=== PATIENT | female | born 1935 | race Caucasian/White ===

== ENCOUNTER 2016-05-31 13:12 | Emergency (ER) | payer MEDICARE, OTHER ==
[~2016-05-31] VITALS: Ht 167.6 cm; Wt 99.8 kg
[~2016-05-31 13:12] MED LIST: ALLO100T PO; D50KC PO; DONE5TAB30 PO; FLUO20CA25 PO; FLUT16SP22 NSEACH; FURO20TA4 PO; HYDR-3812 PO; INSU100I14 SQ; INSU100I29 SQ; LEVO125T6 PO; LISI30TA5 PO; LORA10TA7 PO; OMEP20CA12 PO; PRAV40TA2 PO
[2016-05-31 14:09] LABS: BASOPHILS % (AUTO) 0 % (0-10); EOSINOPHILS # (AUTO) 0.2 10^3/uL (0.0-0.3); EOSINOPHILS % (AUTO) 2 % (0-10); LYMPHOCYTES # (AUTO) 1.6 X 10^3 (1.0-4.0); LYMPHOCYTES % (AUTO) 21 % (12-44); MEAN CORPUSCULAR HEMOGLOBIN 31 PG (25-34); MEAN CORPUSCULAR HGB CONC 33 G/DL (32-36); MEAN CORPUSCULAR VOLUME 95 FL (80-99); MEAN PLATELET VOLUME 10.3 FL (7.4-10.4); MONOCYTES # (AUTO) 0.5 X 10^3 (0.0-1.0); MONOCYTES % (AUTO) 6 % (0-12); NEUTROPHILS # (AUTO) 5.6 X 10^3 (1.8-7.8); NEUTROPHILS % (AUTO) 71 % (42-75); PLATELET COUNT 199 10^3/uL (130-400); RED CELL DISTRIBUTION WIDTH 13.9 % (10.0-14.5)
[2016-05-31 14:20] LABS: ALBUMIN 3.6 G/DL (3.2-4.5); BILIRUBIN,TOTAL 0.2 MG/DL (0.1-1.0); CALCIUM 8.7 MG/DL (8.5-10.1); CREATININE SERUM 1.43 MG/DL (0.60-1.30); POTASSIUM 4.6 MMOL/L (3.6-5.0); TOTAL PROTEIN 6.9 G/DL (6.4-8.2)
[2016-05-31 14:23] LABS: BILIRUBIN,URINE NEGATIVE (NEGATIVE); KETONES,URINE NEGATIVE (NEGATIVE); LEUKOCYTE ESTERASE ,URINE NEGATIVE (NEGATIVE); NITRITE,URINE NEGATIVE (NEGATIVE); PH,URINE 5 (5-9); PROTEIN,URINE 3+ (NEGATIVE); UROBILINOGEN,URINE NORMAL (NORMAL)
--- NOTE | 2016-05-31 14:47 | Diagnostic Imaging Report ---
EXAM: Portable erect AP chest at 2:17 p.m. INDICATION: Fell. Chest pain. FINDINGS: The mild cardiomegaly and the left-sided pacemaker seen on the prior exam of 12/11/15 are again evident and no different. The lungs remain clear. There still no sign of failure, pneumonia or of a pleural effusion to suggest an acute abnormality. The mediastinum is not widened. The osseous structures are intact. IMPRESSION: There is mild cardiomegaly, but there is no evidence for an acute cardiopulmonary abnormality. Dictated by: Dictated on workstation # [id number]
--- NOTE | 2016-05-31 15:49 | ED General ---
General Chief Complaint: General Problems/Pain Stated Complaint: FALL, SHAKEY Nursing Triage Note: PT CO OF WEAKNESS, PT STATES FELL YESTERDAY, DENIES LOC,DENIES HITTING HEAD. PT HAS SKIN TEAR ON L ELBOW AND L 1ST KNUCKLE. PT IS VERY WEAK. Nursing Sepsis Screen: No Definite Risk Source of Information: Patient, Family History of Present Illness Time Seen by Provider: 15:46 Initial Comments This 80-year-old white female presents with a history of generalized weakness for the last 48 hours. The patient fell last night sustaining an injury to her left elbow and hand due to her weakness. There was no loss of consciousness. There's been no associated chest pain, fever or chills, shortness of breath or productive cough, associated nausea vomiting diarrhea or dysuria. Patient's past medical history significant in that she has a pacemaker for pericardia and stage III renal failure. Allergies and Home Medications Allergies Coded Allergies: No Known Drug Allergies (Unverified , 01/05/14) Home Medications Allopurinol 100 Mg Tablet #180 2 TAB PO DAILY (Reported) Donepezil HCl 5 Mg Tablet #30 1 TAB PO DAILY (Reported) Ergocalciferol (Vitamin D2) 50,000 Unit Capsule #4 50,000 UNITS PO WEEK ( Reported) Fluoxetine HCl 20 Mg Capsule #90 20 MG PO DAILY (Reported) Fluticasone Propionate 16 Gm [place].susp #16 50 MCG DAILY (Reported) Furosemide 20 Mg Tablet #90 1 TAB PO DAILY (Reported) Hydrocodone/Acetaminophen 1 Each Tablet #112 1 TAB PO Q6H (Reported) Insulin Aspart 300 Units/3 Ml Solution #15 10 UNITS SQ TIDWM (Reported) Insulin Detemir 100 Unit/1 Ml Insuln.pen #15 10 UNITS SQ HS (Reported) Levothyroxine Sodium 125 Mcg Tablet #30 1 TAB PO DAILY (Reported) Loratadine 10 Mg Tablet 10 MG PO DAILY (Reported) Omeprazole 20 Mg Capsule.dr #180 1 TAB PO DAILY (Reported) Pravastatin Sodium 40 Mg Tablet #30 1 TAB PO DAILY (Reported) Constitutional: No chills, No fever, weakness EENTM: No hearing loss, No throat pain, No vision loss Respiratory: No cough Cardiovascular: No chest pain Gastrointestinal: No abdominal pain, No diarrhea, No nausea, No vomiting Genitourinary: No dysuria, No frequency Musculoskeletal: No back pain Skin: No rash Psychiatric/Neurological: No Symptoms Reported Hematologic/Lymphatic: No Symptoms Reported Immunological/Allergic: no symptoms reported Past Aaukqqq-Uyteuk-Zglkaz Hx Patient Social History Alcohol Use: Denies Use Recreational Drug Use: No Smoking Status: Former Smoker Type Used: Cigarettes Recent Foreign Travel: No Contact w/Someone Who Travel: No Recent Infectious Disease Expo: No Recent Hopitalizations: No Immunizations Up To Date Date of Influenza Vaccine: Apr 03, 2016 Seasonal Allergies Seasonal Allergies: Yes Surgeries HX Surgeries: Yes (HERNIA REPAIR, "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 CHF) Cardiac Disorders: Chronic Edema/Swelling, Coronary Artery Disease, Heart Attack, High Cholesterol, Hypertension Neurological Hx Neurological Disorders: No Reproductive System : No Genitourinary Hx Genitourinary Disorders: Yes (STAGE 4 RENAL FAILURE, PER PT) Genitourinary Disorders: Renal Failure Gastrointestinal Hx Gastrointestinal Disorders: Yes Gastrointestinal Disorders: Abdominal Hernia, Gastroesophageal Reflux, Irritable Bowel Musculoskeletal Hx Musculoskeletal Disorders: Yes Musculoskeletal Disorders: Arthritis Endocrine Hx Endocrine Disorders: Yes Endocrine Disorders: Diabetes, Insulin dep, Hypothyroidsim HEENT HX ENT Disorders: No Cancer Hx Cancer: Yes Cancer: Skin Psychosocial Hx Psychiatric Problems: No Integumentary HX Skin/Integumentary Disorder: No Blood Transfusions Hx Blood Disorders: No Reviewed Nursing Assessment Reviewed/Agree w Nursing PMH: Yes Family Medical History Family Medial History: Patient reports no known family medical history. Physical Exam Vital Signs Vital Sign - Last 12Hours 05/31/16 13:30 Temp 99.5 Pulse 72 Resp 18 B/P 169/89 Pulse Ox 96 Capillary Refill : Less Than 3 Seconds General Appearance: No Apparent Distress WD/WN Eyes: Bilateral Eye Normal Inspection HEENT: PERRL/EOMI Neck: Full Range of Motion Normal Inspection Respiratory: Chest Non Tender Lungs Clear Normal Breath Sounds Cardiovascular: Regular Rate, Rhythm No Murmur Gastrointestinal: Normal Bowel Sounds Non Tender Back: Normal Inspection Extremity: Normal Inspection Normal Range of Motion Neurologic/Psychiatric: Oriented x3 No Motor/Sensory Deficits Normal Mood/ Affect Skin: Normal Color Warm/Dry Progress/Results/Core Measures Results/Orders Lab Results Laboratory Tests Test 05/31/16 13:50 05/31/16 14:00 Range/Units Alanine Aminotransferase (ALT/SGPT) 15 0-55 U/L Albumin 3.6 3.2-4.5 G/DL Alkaline Phosphatase 124 40-136 U/L Anion Gap 10 5-14 MMOL/L Aspartate Amino Transf (AST/SGOT) 13 5-34 U/L BUN/Creatinine Ratio 38 Basophils # (Auto) 0.0 0.0-0.1 10^3/uL Basophils (%) (Auto) 0 0-10 % Blood Urea Nitrogen 55 H 7-18 MG/DL Calcium Level 8.7 8.5-10.1 MG/DL Carbon Dioxide Level 21 21-32 MMOL/L Chloride Level 110 H 98-107 MMOL/L Creatinine 1.43 H 0.60-1.30 MG/DL Eosinophils # (Auto) 0.2 0.0-0.3 10^3/uL Eosinophils (%) (Auto) 2 0-10 % Estimat Glomerular Filtration Rate 35 Glucose Level 101 70-105 MG/DL Hematocrit 37 35-52 % Hemoglobin 12.2 11.5-16.0 G/DL Lymphocytes # (Auto) 1.6 1.0-4.0 X 10^3 Lymphocytes (%) (Auto) 21 12-44 % Mean Corpuscular Hemoglobin 31 25-34 PG Mean Corpuscular Hemoglobin Concent 33 32-36 G/DL Mean Corpuscular Volume 95 80-99 FL Mean Platelet Volume 10.3 7.4-10.4 FL Monocytes # (Auto) 0.5 0.0-1.0 X 10^3 Monocytes (%) (Auto) 6 0-12 % Neutrophils # (Auto) 5.6 1.8-7.8 X 10^3 Neutrophils (%) (Auto) 71 42-75 % Platelet Count 199 130-400 10^3/uL Potassium Level 4.6 3.6-5.0 MMOL/L Red Blood Count 3.90 L 4.35-5.85 10^6/uL Red Cell Distribution Width 13.9 10.0-14.5 % Sodium Level 141 135-145 MMOL/L Total Bilirubin 0.2 0.1-1.0 MG/DL Total Protein 6.9 6.4-8.2 G/DL White Blood Count 8.0 4.3-11.0 10^3/uL Urine Amorphous Sediment FEW TETO URATES H /LPF Urine Bacteria NEGATIVE /HPF Urine Bilirubin NEGATIVE NEGATIVE Urine Casts NONE /LPF Urine Clarity CLEAR Urine Color YELLOW Urine Crystals PRESENT H /LPF Urine Culture Indicated NO Urine Glucose (UA) NEGATIVE NEGATIVE Urine Ketones NEGATIVE NEGATIVE Urine Leukocyte Esterase NEGATIVE NEGATIVE Urine Mucus NEGATIVE /LPF Urine Nitrite NEGATIVE NEGATIVE Urine Protein 3+ H NEGATIVE Urine RBC NONE /HPF Urine RBC (Auto) NEGATIVE NEGATIVE Urine Specific [place] 1.015 L 1.016-1.022 Urine Urobilinogen NORMAL NORMAL MG/DL Urine WBC NONE /HPF Urine pH 5 5-9 My Orders Orders-VINCE CARVALHO MD Cbc With Automated Diff (05/31/16 14:01) Comprehensive Metabolic Panel (05/31/16 14:01) Ua Culture If Indicated (05/31/16 14:01) Chest 1 View, Ap/Pa Only (05/31/16 14:10) Continuous Ekg Monitoring (05/31/16 15:49) Ekg Tracing (05/31/16 16:04) Vital Signs/I&O Vital Sign - Last 12Hours 05/31/16 13:30 Temp 99.5 Pulse 72 Resp 18 B/P 169/89 Pulse Ox 96 Blood Pressure Mean: 115 Progress Note : Time: 16:38 Progress Note The patient's evaluation emergency department demonstrated no acute pathology. The patient remained awake and alert during her evaluation. She was able to function with assistance to use the bathroom. The patient's CBC, CMP, UA, and EKG were without evidence of acute pathology. The patient's pacemaker appeared to be functioning on a less than optimal EKG tracing. I detected no changes from the patient's previous EKG. The patient wanted to return to home and follow up with her primary care physician on Friday. Departure Impression Impression: Primary Impression: Generalized weakness Additional Impression: Viral syndrome Disposition: HOME, SELF-CARE Condition: Improved Departure-Patient Inst. Decision time for Depature: 16:42 Referrals: [facility] ([facility]Family) Primary Care Physician Patient Instructions: Generalized Weakness (DC) Add. Discharge Instructions: Rest this weekend. Come back if you've any further problems. Follow closely with [facility] on Friday. All discharge instructions reviewed with patient and/or family. Voiced understanding. VINCE CARVALHO MD May 31, 2016 15:49
[2016-05-31 16:51] VITALS: BP 152/79
== END 2016-05-31 16:51 | disposition home or self-care (01) ==
LOC: EDUNIT# 13:12 → ER 13:15
DX: B34.9 Viral infection, unspecified (principal); E11.9 Type 2 diabetes mellitus without complications; I10 Essential (primary) hypertension; I25.10 Atherosclerotic heart disease of native coronary artery without angina pectoris; Z87.891 Personal history of nicotine dependence; Z79.4 Long term (current) use of insulin; Z79.899 Other long term (current) drug therapy; Z95.0 Presence of cardiac pacemaker
CPT/HCPCS: 36415; 71010; 80053; 81000; 85025; 93005

== ENCOUNTER 2016-06-07 08:43 | Emergency (ER) | payer MEDICARE, OTHER ==
[~2016-06-07] VITALS: Ht 170.2 cm; Wt 100.7 kg
--- OUTSIDE RECORDS SUMMARY | 2016-06-07 08:49 | XMS REPORT ---
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 Name Role Phone RADHA JANG Unavailable PROBLEMS Type Condition ICD9-CM Code [id number] Code Onset Dates Condition Status SNOMED Code Problem Hyperlipidemia, unspecified E78.5 Active 83313713 Problem Muscle weakness-general M62.81 Active 33668626 Problem Essential (primary) hypertension I10 Active 73726250 Problem Gastritis K29.70 Active 8422225 Problem Pacemaker Z95.0 Active 317234266 Problem Depression F32.9 Active 99564568 Assessment Yeast infection of the skin B37.2 Nov, Active 74885044 Problem Venous insufficiency of both lower extremities I87.2 Active 765565919 Problem Atherosclerotic heart disease of [place] coronary artery without angina pectoris I25.10 Active 254860576 Problem Candidiasis, intertriginous B37.2 Active 45273044 Problem Peripheral vascular disease I73.9 Active 829420518 Problem Dysthymia F34.1 Active 64068192 Problem Hyperparathyroidism due to renal insufficiency N25.81 Active 34389531 Problem Low back pain M54.5 Active 915968439 Problem Sleep related hypoxia G47.34 Active 51057515 Problem Type 2 diabetes mellitus with other diabetic ophthalmic complication E11.39 Active 01971958 Problem Type 2 diabetes mellitus with diabetic polyneuropathy E11.42 Active 441745410 Problem Anemia due to chronic kidney disease N18.9 Active 247600744 Problem Type 2 diabetes mellitus with diabetic chronic kidney disease E11.22 Active 75805039 Problem Hypothyroidism, unspecified E03.9 Active 24758613 Problem Type 2 diabetes mellitus with unspecified complications E11.8 Active 53797505 ALLERGIES Unknown Allergies SOCIAL HISTORY No smoking Hx information available PLAN OF CARE VITAL SIGNS MEDICATIONS Medication Instructions Dosage Frequency Start Date End Date Duration Status Nystatin 050756 UNIT/GM Externally 3 times a day 1 application to affected area as needed 8h Nov, Active RESULTS No Results PROCEDURES No Known procedures IMMUNIZATIONS No Known Immunizations
[2016-06-07 09:39] LABS: BASOPHILS % (AUTO) 0 % (0-10); EOSINOPHILS # (AUTO) 0.2 10^3/uL (0.0-0.3); EOSINOPHILS % (AUTO) 1 % (0-10); LYMPHOCYTES # (AUTO) 0.7 X 10^3 (1.0-4.0); LYMPHOCYTES % (AUTO) 6 % (12-44); MEAN CORPUSCULAR HEMOGLOBIN 31 PG (25-34); MEAN CORPUSCULAR HGB CONC 33 G/DL (32-36); MEAN CORPUSCULAR VOLUME 96 FL (80-99); MEAN PLATELET VOLUME 10.4 FL (7.4-10.4); MONOCYTES # (AUTO) 0.8 X 10^3 (0.0-1.0); MONOCYTES % (AUTO) 7 % (0-12); NEUTROPHILS # (AUTO) 10.1 X 10^3 (1.8-7.8); NEUTROPHILS % (AUTO) 86 % (42-75); PLATELET COUNT 192 10^3/uL (130-400); RED BLOOD COUNT 3.57 10^6/uL (4.35-5.85); RED CELL DISTRIBUTION WIDTH 14.3 % (10.0-14.5); WHITE BLOOD COUNT 11.8 10^3/uL (4.3-11.0)
--- NOTE | 2016-06-07 09:51 | ED Cough/URI ---
General Chief Complaint: Cough/Cold/Flu Symptoms Stated Complaint: COUGH/WHEEZING SOA Nursing Triage Note: c/o cough/congestion/mild SOA. Onset yesterday. Source: patient Exam Limitations: no limitations History of Present Illness Time seen by provider: 09:48 Initial Comments The patient is an 80-year-old white female who was brought by her granddaughter with a complaint of cough and shortness of breath. When asked if she has any lung diseases like COPD she attempted to minimize this. Her granddaughter however states that she has been given this diagnosis. She also had been given prescriptions for Advair but she has discontinued those. She was a smoker until 2-3 years ago. There are 2 great grandchildren in the home. She is not aware of fever. Timing/Duration: yesterday Severity/Quality: dry cough Prior Episodes/Possible Cause: occasional episodes Allergies and Home Medications Allergies Coded Allergies: No Known Drug Allergies (Unverified , 01/05/14) Home Medications Allopurinol 100 Mg Tablet #180 2 TAB PO DAILY (Reported) Donepezil HCl 5 Mg Tablet #30 1 TAB PO DAILY (Reported) Ergocalciferol (Vitamin D2) 50,000 Unit Capsule #4 50,000 UNITS PO WEEK ( Reported) Fluoxetine HCl 20 Mg Capsule #90 20 MG PO DAILY (Reported) Fluticasone Propionate 16 Gm [place].susp #16 50 MCG DAILY (Reported) Furosemide 20 Mg Tablet #90 1 TAB PO DAILY (Reported) Hydrocodone/Acetaminophen 1 Each Tablet #112 1 TAB PO Q6H (Reported) Insulin Aspart 300 Units/3 Ml Solution #15 10 UNITS SQ TIDWM (Reported) Insulin Detemir 100 Unit/1 Ml Insuln.pen #15 10 UNITS SQ HS (Reported) Levothyroxine Sodium 125 Mcg Tablet #30 1 TAB PO DAILY (Reported) Loratadine 10 Mg Tablet 10 MG PO DAILY (Reported) Omeprazole 20 Mg Capsule.dr #180 1 TAB PO DAILY (Reported) Pravastatin Sodium 40 Mg Tablet #30 1 TAB PO DAILY (Reported) Constitutional: see HPI EENTM: no symptoms reported Respiratory: see HPI cough short of breath wheezing Cardiovascular: no symptoms reported Gastrointestinal: no symptoms reported Genitourinary: no symptoms reported Musculoskeletal: no symptoms reported Skin: no symptoms reported Psychiatric/Neurological: No Symptoms Reported Hematologic/Lymphatic: No Symptoms Reported Immunological/Allergic: no symptoms reported Past Vibosfu-Vphrvc-Uoyzsu Hx Patient Social History Alcohol Use: Denies Use Recreational Drug Use: No Smoking Status: Former Smoker Type Used: Cigarettes Recent Foreign Travel: No Contact w/Someone Who Travel: No Recent Infectious Disease Expo: No Recent Hopitalizations: No Immunizations Up To Date Date of Influenza Vaccine: Apr 03, 2016 Seasonal Allergies Seasonal Allergies: Yes Surgeries HX Surgeries: Yes (HERNIA REPAIR, "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 CHF) Cardiac Disorders: Chronic Edema/Swelling, Coronary Artery Disease, Heart Attack, High Cholesterol, Hypertension Neurological Hx Neurological Disorders: No Genitourinary Hx Genitourinary Disorders: Yes (STAGE 4 RENAL FAILURE, PER PT) Genitourinary Disorders: Renal Failure Gastrointestinal Hx Gastrointestinal Disorders: Yes Gastrointestinal Disorders: Abdominal Hernia, Gastroesophageal Reflux, Irritable Bowel Musculoskeletal Hx Musculoskeletal Disorders: Yes Musculoskeletal Disorders: Arthritis Endocrine Hx Endocrine Disorders: Yes Endocrine Disorders: Diabetes, Insulin dep, Hypothyroidsim HEENT HX ENT Disorders: No Cancer Hx Cancer: Yes Cancer: Skin Psychosocial Hx Psychiatric Problems: No Integumentary HX Skin/Integumentary Disorder: No Blood Transfusions Hx Blood Disorders: No Family Medical History Family Medial History: Patient reports no known family medical history. Physical Exam Vital Signs Vital Sign - Last 12Hours 06/07/16 09:06 Temp 98.8 Pulse 84 Resp 28 B/P 183/80 O2 Delivery Room Air Capillary Refill : Less Than 3 Seconds General Appearance: mild distress Eyes: Bilateral Eye Normal Inspection Neck: full range of motion Respiratory: chest non-tender lungs clear no respiratory distress no accessory muscle use respiratory distress decreased breath sounds Cardiovascular: normal peripheral pulses regular rate, rhythm no edema no gallop no JVD no murmur Gastrointestinal: normal bowel sounds non tender soft no organomegaly no pulsatile mass Extremities: normal range of motion non-tender normal inspection no pedal edema no calf tenderness normal capillary refill pelvis stable Neurologic/Psychiatric: amphibian crewmember II-XII nml as tested no motor/sensory deficits alert normal mood/affect oriented x 3 Skin: normal color warm/dry cyanosis cool diaphoresis damp Lymphatic: no adenopathy axilla node tender (R) axilla node tender (L) inguinal node tender (R) inguinal node tender (L) Progress/Results/Core Measures Results/Orders Lab Results Laboratory Tests Test 06/07/16 09:24 06/07/16 10:15 Range/Units Alanine Aminotransferase (ALT/SGPT) 14 0-55 U/L Albumin 3.4 3.2-4.5 G/DL Alkaline Phosphatase 119 40-136 U/L Anion Gap 9 5-14 MMOL/L Aspartate Amino Transf (AST/SGOT) 11 5-34 U/L BUN/Creatinine Ratio 34 Band Neutrophils 0 % Basophils # (Auto) 0.0 0.0-0.1 10^3/uL Basophils % (Manual) 0 % Basophils (%) (Auto) 0 0-10 % Blood Morphology Comment NORMAL Blood Urea Nitrogen 53 H 7-18 MG/DL Calcium Level 8.4 L 8.5-10.1 MG/DL Carbon Dioxide Level 18 L 21-32 MMOL/L Chloride Level 113 H 98-107 MMOL/L Creatinine 1.55 H 0.60-1.30 MG/DL Eosinophils # (Auto) 0.2 0.0-0.3 10^3/uL Eosinophils % (Manual) 1 % Eosinophils (%) (Auto) 1 0-10 % Estimat Glomerular Filtration Rate 32 Glucose Level 244 H 70-105 MG/DL Hematocrit 34 L 35-52 % Hemoglobin 11.2 L 11.5-16.0 G/DL Lymphocytes # (Auto) 0.7 L 1.0-4.0 X 10^3 Lymphocytes % (Manual) 4 % Lymphocytes (%) (Auto) 6 L 12-44 % Mean Corpuscular Hemoglobin 31 25-34 PG Mean Corpuscular Hemoglobin Concent 33 32-36 G/DL Mean Corpuscular Volume 96 80-99 FL Mean Platelet Volume 10.4 7.4-10.4 FL Monocytes # (Auto) 0.8 0.0-1.0 X 10^3 Monocytes % (Manual) 6 % Monocytes (%) (Auto) 7 0-12 % Neutrophils # (Auto) 10.1 H 1.8-7.8 X 10^3 Neutrophils % (Manual) 89 % Neutrophils (%) (Auto) 86 H 42-75 % Platelet Count 192 130-400 10^3/uL Potassium Level 4.3 3.6-5.0 MMOL/L Red Blood Count 3.57 L 4.35-5.85 10^6/uL Red Cell Distribution Width 14.3 10.0-14.5 % Sodium Level 140 135-145 MMOL/L Total Bilirubin 0.4 0.1-1.0 MG/DL Total Protein 6.5 6.4-8.2 G/DL White Blood Count 11.8 H 4.3-11.0 10^3/uL Urine Amorphous Sediment LARGE TETO URATES H /LPF Urine Bacteria NEGATIVE /HPF Urine Bilirubin NEGATIVE NEGATIVE Urine Casts NONE /LPF Urine Clarity CLEAR Urine Color YELLOW Urine Crystals NONE /LPF Urine Culture Indicated NO Urine Glucose (UA) NEGATIVE NEGATIVE Urine Ketones NEGATIVE NEGATIVE Urine Leukocyte Esterase NEGATIVE NEGATIVE Urine Mucus NEGATIVE /LPF Urine Nitrite NEGATIVE NEGATIVE Urine Protein 3+ H NEGATIVE Urine RBC NONE /HPF Urine RBC (Auto) NEGATIVE NEGATIVE Urine Specific [place] 1.020 1.016-1.022 Urine Squamous Epithelial Cells 0-2 /HPF Urine Urobilinogen NORMAL NORMAL MG/DL Urine WBC NONE /HPF Urine pH 5 5-9 My Orders Orders-KWADWO LOPEZ MD Cbc With Automated Diff (06/07/16 08:51) Comprehensive Metabolic Panel (06/07/16 08:51) Ua Culture If Indicated (06/07/16 08:51) Influenza A And B Antigens (06/07/16 09:24) Chest 1 View, Ap/Pa Only (06/07/16 09:24) Manual Differential (06/07/16 09:24) Vital Signs/I&O Vital Sign - Last 12Hours 06/07/16 09:06 Temp 98.8 Pulse 84 Resp 28 B/P 183/80 O2 Delivery Room Air Blood Pressure Mean: 114 Departure Impression Impression: Primary Impression: Upper respiratory infection Additional Impression: exacerbation of COPD Disposition: HOME, SELF-CARE Condition: Improved Departure-Patient Inst. Decision time for Depature: 10:56 Referrals: [facility] (PCP/Family) Primary Care Physician Add. Discharge Instructions: All discharge instructions reviewed with patient and/or family. Voiced understandi Take antibiotics as directed Use inhaler 4 times daily Take Tessalon for cough suppression Scripts Benzonatate (Tessalon [place])100 Mg [id number] Mg PO TTWICE A DAY #20 CAP Prov:KWADWO LOPEZ MD 06/07/16 Cefdinir 300 Mg [id number] Mg PO BID #20 CAP Prov:KWADWO LOPEZ MD 06/07/16 Albuterol/Ipratropium (Combivent Respimat Inhal [place])4 Gm Aero2 Puff IH 4 TIMES A DAY #1 INH Prov:KWADWO LOPEZ MD 06/07/16 KWADWO LOPEZ MD Jun 07, 2016 09:51
[2016-06-07 09:57] LABS: ALBUMIN 3.4 G/DL (3.2-4.5); BILIRUBIN,TOTAL 0.4 MG/DL (0.1-1.0); CALCIUM 8.4 MG/DL (8.5-10.1); CREATININE SERUM 1.55 MG/DL (0.60-1.30); POTASSIUM 4.3 MMOL/L (3.6-5.0); TOTAL PROTEIN 6.5 G/DL (6.4-8.2)
[2016-06-07 10:09] LABS: BAND NEUTROPHILS 0 %; BASOPHILS % (MANUAL) 0 %; EOSINOPHILS % (MANUAL) 1 %; LYMPHOCYTES % (MANUAL) 4 %; NEUTROPHILS % (MANUAL) 89 %
[2016-06-07 10:26] LABS: BILIRUBIN,URINE NEGATIVE (NEGATIVE); KETONES,URINE NEGATIVE (NEGATIVE); LEUKOCYTE ESTERASE ,URINE NEGATIVE (NEGATIVE); NITRITE,URINE NEGATIVE (NEGATIVE); PH,URINE 5 (5-9); PROTEIN,URINE 3+ (NEGATIVE); UROBILINOGEN,URINE NORMAL (NORMAL)
[2016-06-07 10:33] LABS: SQUAMOUS EPITHELIAL CELL,UR 0-2 /HPF
[2016-06-07] MEDS ORDERED: CEFD300C3 PO (10:59)
[2016-06-07] MEDS ORDERED: IPRA4AER IH (10:59)
[2016-06-07] MEDS ORDERED: BENZ-13 PO (11:01)
[2016-06-07] MEDS: RT-ALBUTEROL/IPRATROPIUM 3 ML (DUONEB) VIAL INH ONE (11:14)
--- NOTE | 2016-06-07 11:29 | Diagnostic Imaging Report ---
INDICATION: Fell. 1002 hrs. Portable upright view of the chest is obtained. Comparison is made to study of 05/31/2016. There is mild cardiomegaly and pulmonary venous congestion. No pneumothorax or consolidation is identified. Left anterior chest wall dual-chamber cardiac pacemaker is in stable position. There is no pneumothorax or significant pleural fluid. IMPRESSION: Mild pulmonary venous congestion may be related to mild cardiac decompensation. There is no significant overt edema or other adverse change. Dictated by: Dictated on workstation # [id number]
[2016-06-07 11:35] VITALS: BP 172/76
== END 2016-06-07 11:49 | disposition home or self-care (01) ==
LOC: EDUNIT# 08:43 → ER 08:45
DX: J44.1 Chronic obstructive pulmonary disease with (acute) exacerbation (principal); J06.9 Acute upper respiratory infection, unspecified; I25.10 Atherosclerotic heart disease of native coronary artery without angina pectoris; I10 Essential (primary) hypertension; E11.9 Type 2 diabetes mellitus without complications; Z79.4 Long term (current) use of insulin; Z79.899 Other long term (current) drug therapy; Z87.891 Personal history of nicotine dependence
CPT/HCPCS: 36415; 71010; 80053; 81000; 85007; 85027; 87804; 94640; 94664; 99282

== ENCOUNTER 2016-06-09 14:46 | Inpatient (IN) | payer MEDICARE, OTHER ==
[~2016-06-09] VITALS: Ht 170.2 cm; Wt 109.4 kg
[~2016-06-09 14:46] MED LIST changes: +BENZ-13 PO; +CEFD300C3 PO; +IPRA4AER IH
[2016-06-09] MEDS ORDERED: RX-NITROGLYCERIN 0.4 MG TAB BTL 25'S SL PRN (15:00)
[2016-06-09] MEDS ORDERED: ASPIRIN 81 MG CHEW (CHILDREN'S ASA) PO ONE (15:00)
--- NOTE | 2016-06-09 15:01 | ED Chest Pain ---
General Stated Complaint: CP Source: patient (SOMEWHAT LIMITED HISTORIAN), EMS, old records History of Present Illness Time seen by provider: 14:47 Initial Comments PT ARRIVES VIA EMS FROM HOME C/O CHEST PAIN FOR SEVERAL DAYS, WORSE TODAY PAIN COMES AND GOES--RATES 5-6 NOW PAIN IS ACROSS UPPER CHEST AND IS WORSE ON THE RIGHT C/O LEFT ARM PAIN PT STATES SHE IS ALWAYS SHORT OF BREATH AND IS NOT ANY WORSE TODAY C/O GENERALIZED WEAKNESS AND HAS BEEN UNABLE TO STAND TODAY PT HAS CHRONIC SWELLING IN LEGS--RIGHT > LEFT--AND IS NO DIFFERENT TODAY EMS GAVE 323 MG ASPIRIN, NO NTG GIVEN PT HAS HAD COUGH/COLD SYMPTOMS FOR A FEW DAYS, WITH FEVER UP TO 100.2 SEEN HERE 06/07/16 FOR SHORTNESS OF BREATH, HAS COPD.--RX'S COMBIVENT INHALER, CEFDINIR, TESSALON PT ALSO SEEN HERE 05/31/16 FOR GENERALIZED WEAKNESS--WORK UP NEGATIVE, 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, 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 Allergies and Home Medications Allergies Coded Allergies: No Known Drug Allergies (Unverified , 01/05/14) Home Medications Albuterol/Ipratropium 4 Gm Aero #1 2 PUFF IH 4 TIMES A DAY Prescribed by: KWADWO LOPEZ on 06/07/16 1059 Allopurinol 100 Mg Tablet #180 2 TAB PO DAILY (Reported) Benzonatate 100 Mg Capsule #20 100 MG PO TTWICE A DAY Prescribed by: KWADWO LOPEZ on 06/07/16 1101 Cefdinir 300 Mg Capsule #20 300 MG PO BID Prescribed by: KWADWO LOPEZ on 06/07/16 1059 Donepezil HCl 5 Mg Tablet #30 1 TAB PO DAILY (Reported) Ergocalciferol (Vitamin D2) 50,000 Unit Capsule #4 50,000 UNITS PO WEEK ( Reported) Fluoxetine HCl 20 Mg Capsule #90 20 MG PO DAILY (Reported) Fluticasone Propionate 16 Gm [place].susp #16 50 MCG DAILY (Reported) Furosemide 20 Mg Tablet #90 1 TAB PO DAILY (Reported) Hydrocodone/Acetaminophen 1 Each Tablet #112 1 TAB PO Q6H (Reported) Insulin Aspart 300 Units/3 Ml Solution #15 10 UNITS SQ TIDWM (Reported) Insulin Detemir 100 Unit/1 Ml Insuln.pen #15 10 UNITS SQ HS (Reported) Levothyroxine Sodium 125 Mcg Tablet #30 1 TAB PO DAILY (Reported) Loratadine 10 Mg Tablet 10 MG PO DAILY (Reported) Omeprazole 20 Mg Capsule.dr #180 1 TAB PO DAILY (Reported) Pravastatin Sodium 40 Mg Tablet #30 1 TAB PO DAILY (Reported) Review of Systems Constitutional: see HPI fever malaise weakness EENTM: See HPI Nose Congestion Respiratory: See HPI CoughDenies Shortness of Air, Denies Wheezing Cardiovascular: See HPI Chest PainDenies Edema, Denies Lightheadedness, Denies Palpitations, Denies Syncope Gastrointestinal: No Symptoms Reported Genitourinary: No Symptoms Reported Musculoskeletal: see HPI (LEFT ARM PAIN ) Skin: no symptoms reported Psychiatric/Neurological: No Symptoms Reported Endocrine: No Symptoms Reported Hematologic/Lymphatic: No Symptoms Reported Past Drtikdl-Qrhwpk-Jkdraw Hx Patient Social History Alcohol Use: Denies Use Recreational Drug Use: No Smoking Status: Former Smoker (1 PPD, QUIT 2013) Type Used: Cigarettes Recent Hopitalizations: No Immunizations Up To Date Date of Influenza Vaccine: Apr 03, 2016 Seasonal Allergies Seasonal Allergies: Yes Surgeries HX Surgeries: Yes (HERNIA REPAIR, "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 CHF) Cardiac Disorders: Chronic Edema/Swelling, Coronary Artery Disease, Heart Attack, High Cholesterol, Hypertension Neurological Hx Neurological Disorders: Yes Neurological Disorders: Dementia Genitourinary Hx Genitourinary Disorders: Yes (STAGE 4 RENAL FAILURE, PER PT) Genitourinary Disorders: Renal Failure Gastrointestinal Hx Gastrointestinal Disorders: Yes Gastrointestinal Disorders: Abdominal Hernia, Gastroesophageal Reflux, Irritable Bowel Musculoskeletal Hx Musculoskeletal Disorders: Yes Musculoskeletal Disorders: Arthritis, Chronic Back Pain Endocrine Hx Endocrine Disorders: Yes Endocrine Disorders: Diabetes, Insulin dep, Hypothyroidsim HEENT HX ENT Disorders: No Cancer Hx Cancer: Yes Cancer: Skin Psychosocial Hx Psychiatric Problems: Yes Behavioral Health Disorders: Anxiety, Depression Integumentary HX Skin/Integumentary Disorder: No Blood Transfusions Hx Blood Disorders: No Family Medical History Family Medial History: Patient reports no known family medical history. Physical Exam Vital Signs Vital Sign - Last 12Hours 06/09/16 14:46 Temp 101.2 Pulse 67 Resp 18 B/P 133/64 Pulse Ox 94 O2 Delivery Nasal Cannula O2 Flow Rate 2 Capillary Refill : General Appearance: No Apparent Distress Obese Other (DOES NOT APPEAR TO BE IN ANY DISCOMFORT OR DISTRESS. 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 Norm as Tested Skin: Normal Color Warm/DryNo Rash Progress/Results/Core Measures Results/Orders Lab Results Laboratory Tests Test 06/09/16 15:03 06/09/16 15:17 06/09/16 16:22 Range/Units Activated Partial Thromboplast Time 29 24-35 SEC Alanine Aminotransferase (ALT/SGPT) 16 0-55 U/L Albumin 3.2 3.2-4.5 G/DL Alkaline Phosphatase 103 40-136 U/L Amylase Level 26 25-125 U/L Anion Gap 11 5-14 MMOL/L Aspartate Amino Transf (AST/SGOT) 12 5-34 U/L B-Type Natriuretic Peptide 999.8 H <100.0 PG/ML BUN/Creatinine Ratio 36 Basophils # (Auto) 0.0 0.0-0.1 10^3/uL Basophils (%) (Auto) 0 0-10 % Blood Urea Nitrogen 58 H 7-18 MG/DL Calcium Level 8.6 8.5-10.1 MG/DL Carbon Dioxide Level 19 L 21-32 MMOL/L Chloride Level 111 H 98-107 MMOL/L Creatine Kinase MB 1.2 <6.6 NG/ML Creatinine 1.60 H 0.60-1.30 MG/DL Eosinophils # (Auto) 0.1 0.0-0.3 10^3/uL Eosinophils (%) (Auto) 1 0-10 % Estimat Glomerular Filtration Rate 31 Glucose Level 207 H 70-105 MG/DL Hematocrit 32 L 35-52 % Hemoglobin 10.4 L 11.5-16.0 G/DL INR Comment 1.1 0.8-1.4 Lipase 11 8-78 U/L Lymphocytes # (Auto) 0.6 L 1.0-4.0 X 10^3 Lymphocytes (%) (Auto) 6 L 12-44 % Magnesium Level 1.6 L 1.8-2.4 MG/DL Mean Corpuscular Hemoglobin 31 25-34 PG Mean Corpuscular Hemoglobin Concent 33 32-36 G/DL Mean Corpuscular Volume 96 80-99 FL Mean Platelet Volume 10.5 H 7.4-10.4 FL Monocytes # (Auto) 0.6 0.0-1.0 X 10^3 Monocytes (%) (Auto) 6 0-12 % Neutrophils # (Auto) 9.0 H 1.8-7.8 X 10^3 Neutrophils (%) (Auto) 86 H 42-75 % Platelet Count 183 130-400 10^3/uL Potassium Level 4.0 3.6-5.0 MMOL/L Prothrombin Time 14.2 12.2-14.7 SEC Red Blood Count 3.32 L 4.35-5.85 10^6/uL Red Cell Distribution Width 14.2 10.0-14.5 % Sodium Level 141 135-145 MMOL/L Total Bilirubin 0.4 0.1-1.0 MG/DL Total Creatine Kinase 43 29-168 U/L Total Protein 6.5 6.4-8.2 G/DL Troponin I < 0.30 <0.30 NG/ML White Blood Count 10.4 4.3-11.0 10^3/uL Lactic Acid Level 1.34 0.50-2.00 MMOL/L Urine Amorphous Sediment LARGE TETO URATES H /LPF Urine Bacteria NEGATIVE /HPF Urine Bilirubin NEGATIVE NEGATIVE Urine Casts NONE /LPF Urine Clarity SLIGHTLY CLOUDY Urine Color YELLOW Urine Crystals NONE /LPF Urine Culture Indicated NO Urine Glucose (UA) NEGATIVE NEGATIVE Urine Ketones NEGATIVE NEGATIVE Urine Leukocyte Esterase NEGATIVE NEGATIVE Urine Mucus NEGATIVE /LPF Urine Nitrite NEGATIVE NEGATIVE Urine Protein 3+ H NEGATIVE Urine RBC NONE /HPF Urine RBC (Auto) NEGATIVE NEGATIVE Urine Specific [place] 1.015 L 1.016-1.022 Urine Squamous Epithelial Cells RARE /HPF Urine Urobilinogen NORMAL NORMAL MG/DL Urine WBC NONE /HPF Urine pH 5 5-9 Micro Results Microbiology 06/09/16 Influenza Types A,B Antigen (GALLO) - Final, Complete My Orders Orders-WONG CASTRO DO Amylase (06/09/16 14:58) Cbc With Automated Diff (06/09/16 14:58) Comprehensive Metabolic Panel (06/09/16 14:58) Creatine Kinase (06/09/16 14:58) Creatine Kinase Mb (06/09/16 14:58) Lipase (06/09/16 14:58) Partial Thromboplastin Time (06/09/16 14:58) Protime With Inr (06/09/16 14:58) Troponin I (06/09/16 14:58) Chest 1 View, Ap/Pa Only (06/09/16 14:58) O2 (06/09/16 14:58) Ekg Tracing (06/09/16 14:58) Aspirin Chewable Tablet (Baby Aspirin Ch (06/09/16 15:00) Rx-Nitroglycerin Sl Tabs (Rx-Nitrostat S (06/09/16 15:00) BNP (06/09/16 14:58) Monitor-Rhythm Ecg Trace Only (06/09/16 14:58) Magnesium (06/09/16 14:58) Influenza A And B Antigens (06/09/16 14:58) Lactic Acid Analyzer (06/09/16 15:07) Ua Culture If Indicated (06/09/16 15:07) Blood Culture (06/09/16 15:07) Acetaminophen Tablet (Tylenol Tablet) (06/09/16 15:15) Levofloxacin 750 Mg/150 Ml Iv (Levaquin (06/09/16 16:44) Medications Given in ED Current Medications Medications Dose Ordered Sig/Germania Route Start Time Stop Time Status Last Admin Dose Admin Acetaminophen 1,000 mg ONCE ONCE PO 06/09/16 15:15 06/09/16 15:16 DC 06/09/16 15:45 1,000 MG Nitroglycerin 0.4 mg UD PRN SL 06/09/16 15:00 06/09/16 15:46 0.4 MG Vital Signs/I&O Vital Sign - Last 12Hours 06/09/16 06/09/16 14:46 14:46 Temp 101.2 Pulse 67 Resp 18 B/P 133/64 Pulse Ox 94 O2 Delivery Nasal Cannula Nasal Cannula O2 Flow Rate 2 Progress Note : Progress Note NO DETERIORATION IN PTS CONDITION DURING ER STAY ECG Initial ECG Impression Time: 13:52 Initial ECG Rate: 78 Initial ECG Comparisson: Unchanged Comment 100% A-V PACED Diagnostic Imaging Comments CXR--CARDIOMEGALY, MINIMAL ATELECTASIS. NO ACUTE PROCESS. 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 ACCEPTS PT FOR ADMIT. Impression Impression: Primary Impression: Chest pain Additional Impressions: Bronchitis Generalized weakness Dehydration Renal insufficiency Disposition: ADMITTED INPATIENT Condition: Stable Decision to Admit Reason: Admit from ER (General) Decision to Admit/Date: Jun 09, 2016 Time/Decision to Admit Time: 16:45 Departure-Patient Inst. Referrals: [facility] (PCP/Family) Primary Care Physician WOGN CASTRO DO Jun 09, 2016 15:01
[2016-06-09 15:10] LABS: BASOPHILS % (AUTO) 0 % (0-10); EOSINOPHILS # (AUTO) 0.1 10^3/uL (0.0-0.3); EOSINOPHILS % (AUTO) 1 % (0-10); LYMPHOCYTES # (AUTO) 0.6 X 10^3 (1.0-4.0); LYMPHOCYTES % (AUTO) 6 % (12-44); MEAN CORPUSCULAR HEMOGLOBIN 31 PG (25-34); MEAN CORPUSCULAR HGB CONC 33 G/DL (32-36); MEAN CORPUSCULAR VOLUME 96 FL (80-99); MEAN PLATELET VOLUME 10.5 FL (7.4-10.4); MONOCYTES # (AUTO) 0.6 X 10^3 (0.0-1.0); MONOCYTES % (AUTO) 6 % (0-12); NEUTROPHILS % (AUTO) 86 % (42-75); PLATELET COUNT 183 10^3/uL (130-400); RED BLOOD COUNT 3.32 10^6/uL (4.35-5.85); RED CELL DISTRIBUTION WIDTH 14.2 % (10.0-14.5); WHITE BLOOD COUNT 10.4 10^3/uL (4.3-11.0)
[2016-06-09] MEDS ORDERED: ACETAMINOPHEN 500 MG TAB (TYLENOL) PO ONE (15:15)
[2016-06-09 15:19] LABS: INR 1.1 (0.8-1.4); PROTHROMBIN TIME PATIENT 14.2 SEC (12.2-14.7)
[2016-06-09 15:32] LABS: ALANINE AMINOTRANSFERASE 16 U/L (0-55); ALBUMIN 3.2 G/DL (3.2-4.5); AMYLASE 26 U/L (25-125); ANION GAP 11 MMOL/L (5-14); ASPARTATE AMINO TRANSFERASE 12 U/L (5-34); BILIRUBIN,TOTAL 0.4 MG/DL (0.1-1.0); BLOOD UREA NITROGEN 58 MG/DL (7-18); BUN/CREATININE RATIO 36; CALCIUM 8.6 MG/DL (8.5-10.1); CARBON DIOXIDE 19 MMOL/L (21-32); CHLORIDE 111 MMOL/L (98-107); CREATINE KINASE 43 U/L (29-168); GFR ESTIMATED 31; GLUCOSE 207 MG/DL (70-105); LIPASE 11 U/L (8-78); MAGNESIUM 1.6 MG/DL (1.8-2.4); SODIUM 141 MMOL/L (135-145); TOTAL PROTEIN 6.5 G/DL (6.4-8.2)
[2016-06-09 15:39] LABS: TROPONIN I < 0.30 NG/ML (<0.30)
--- NOTE | 2016-06-09 15:59 | Diagnostic Imaging Report ---
INDICATION: Chest pain. TECHNIQUE: Single view chest, 3:28 p.m. CORRELATION STUDY: 06/07/2016. FINDINGS: Left-sided pacemaker remains in place. Metallic density is superimposed over the right inferior heart margin, not present on prior study, of unknown etiology or significance. Heart size is enlarged and vasculature is slightly increased from prior study. Mildly prominent interstitial markings. No infiltrate. IMPRESSION: 1. Cardiac enlargement with mild pulmonary vascular congestion and interstitial edema, appearing changed from prior study. 2. Left-sided pacemaker. There is a metallic density over the inferior right heart margins of unknown etiology or significance. Dictated by: Dictated on workstation # [id number]
[2016-06-09 16:30] LABS: BILIRUBIN,URINE NEGATIVE (NEGATIVE); KETONES,URINE NEGATIVE (NEGATIVE); LEUKOCYTE ESTERASE ,URINE NEGATIVE (NEGATIVE); NITRITE,URINE NEGATIVE (NEGATIVE); PH,URINE 5 (5-9); PROTEIN,URINE 3+ (NEGATIVE); UROBILINOGEN,URINE NORMAL (NORMAL)
[2016-06-09 16:39] LABS: SQUAMOUS EPITHELIAL CELL,UR RARE /HPF
[2016-06-09] MEDS ORDERED: LEVOFLOXACIN 750 MG/150 ML IV 150 ML IV STA (16:44)
[2016-06-09 18:00] VITALS: BP 113/67
[2016-06-09 19:00] VITALS: BP 131/60
--- NOTE | 2016-06-09 19:31 | History & Physicial (CHS) ---
HPI History of Present Illness: 80-year-old female brought to [facility] emergency department via EMS for generalized weakness and chest pain. She is also noted to have a cough. To chest pain has been going on for several days and apparently worsened on the day of admission. Pain is described as occurring from the upper chest and on the right side as well. She also admits to shortness of breath as well as overall weakness. She has had also swelling in the lower extremities. She did receive 325 mg of aspirin by EMS. Regarding her cough she has had this for about 2 days along with a fever up to 100.2. Source: patient Exam Limitations: clinical condition Date seen by provider: Jun 09, 2016 Attending Physician Nagi Servin MD PCP [facility] [place] Date of Admission Jun 09, 2016 at 16:45 Home Medications Home Medications Reviewed patient Home Medication Reconciliation Form Allergies Coded Allergies: No Known Drug Allergies (Unverified , 01/05/14) IZD-Ilyhhu-Bbyzxe Hx Patient Social History Alcohol Use: Denies Use Recreational Drug Use: No Smoking Status: Former Smoker Type Used: Cigarettes Recent Foreign Travel: No Contact w/other who traveled: No Recent Hopitalizations: No Recent Infectious Disease Expo: No Physical Abuse Screen: No Sexual Abuse: No Immunizations Up To Date Date of Pneumonia Vaccine: Feb 10, 2016 Date of Influenza Vaccine: Feb 10, 2016 Family Medical History Family History: Patient reports no known family medical history. Review of Systems (CHC) Constitutional: see HPI Reviewed Test Results Reviewed Test Results Lab Laboratory Tests Test 06/09/16 15:03 06/09/16 15:17 06/09/16 16:22 Range/Units Activated Partial Thromboplast Time 29 24-35 SEC Alanine Aminotransferase (ALT/SGPT) 16 0-55 U/L Albumin 3.2 3.2-4.5 G/DL Alkaline Phosphatase 103 40-136 U/L Amylase Level 26 25-125 U/L Anion Gap 11 5-14 MMOL/L Aspartate Amino Transf (AST/SGOT) 12 5-34 U/L B-Type Natriuretic Peptide 999.8 H <100.0 PG/ML BUN/Creatinine Ratio 36 Basophils # (Auto) 0.0 0.0-0.1 10^3/uL Basophils (%) (Auto) 0 0-10 % Blood Urea Nitrogen 58 H 7-18 MG/DL Calcium Level 8.6 8.5-10.1 MG/DL Carbon Dioxide Level 19 L 21-32 MMOL/L Chloride Level 111 H 98-107 MMOL/L Creatine Kinase MB 1.2 <6.6 NG/ML Creatinine 1.60 H 0.60-1.30 MG/DL Eosinophils # (Auto) 0.1 0.0-0.3 10^3/uL Eosinophils (%) (Auto) 1 0-10 % Estimat Glomerular Filtration Rate 31 Glucose Level 207 H 70-105 MG/DL Hematocrit 32 L 35-52 % Hemoglobin 10.4 L 11.5-16.0 G/DL INR Comment 1.1 0.8-1.4 Lipase 11 8-78 U/L Lymphocytes # (Auto) 0.6 L 1.0-4.0 X 10^3 Lymphocytes (%) (Auto) 6 L 12-44 % Magnesium Level 1.6 L 1.8-2.4 MG/DL Mean Corpuscular Hemoglobin 31 25-34 PG Mean Corpuscular Hemoglobin Concent 33 32-36 G/DL Mean Corpuscular Volume 96 80-99 FL Mean Platelet Volume 10.5 H 7.4-10.4 FL Monocytes # (Auto) 0.6 0.0-1.0 X 10^3 Monocytes (%) (Auto) 6 0-12 % Neutrophils # (Auto) 9.0 H 1.8-7.8 X 10^3 Neutrophils (%) (Auto) 86 H 42-75 % Platelet Count 183 130-400 10^3/uL Potassium Level 4.0 3.6-5.0 MMOL/L Prothrombin Time 14.2 12.2-14.7 SEC Red Blood Count 3.32 L 4.35-5.85 10^6/uL Red Cell Distribution Width 14.2 10.0-14.5 % Sodium Level 141 135-145 MMOL/L Total Bilirubin 0.4 0.1-1.0 MG/DL Total Creatine Kinase 43 29-168 U/L Total Protein 6.5 6.4-8.2 G/DL Troponin I < 0.30 <0.30 NG/ML White Blood Count 10.4 4.3-11.0 10^3/uL Lactic Acid Level 1.34 0.50-2.00 MMOL/L Urine Amorphous Sediment LARGE TETO URATES H /LPF Urine Bacteria NEGATIVE /HPF Urine Bilirubin NEGATIVE NEGATIVE Urine Casts NONE /LPF Urine Clarity SLIGHTLY CLOUDY Urine Color YELLOW Urine Crystals NONE /LPF Urine Culture Indicated NO Urine Glucose (UA) NEGATIVE NEGATIVE Urine Ketones NEGATIVE NEGATIVE Urine Leukocyte Esterase NEGATIVE NEGATIVE Urine Mucus NEGATIVE /LPF Urine Nitrite NEGATIVE NEGATIVE Urine Protein 3+ H NEGATIVE Urine RBC NONE /HPF Urine RBC (Auto) NEGATIVE NEGATIVE Urine Specific [place] 1.015 L 1.016-1.022 Urine Squamous Epithelial Cells RARE /HPF Urine Urobilinogen NORMAL NORMAL MG/DL Urine WBC NONE /HPF Urine pH 5 5-9 Radiology NAME: HUMBLE MULLINS [facility] REC#: [id number] PT STATUS: ADM Dipti : 1935 PHYSICIAN: WONG CASTRO DO ADMIT DATE: 06/09/16/ICU Signed Date of Exam: 06/09/16 CHEST 1 VIEW, AP/PA ONLY INDICATION: Chest pain. TECHNIQUE: Single view chest, 3:28 p.m. CORRELATION STUDY: 06/07/2016. FINDINGS: Left-sided pacemaker remains in place. Metallic density is superimposed over the right inferior heart margin, not present on prior study, of unknown etiology or significance. Heart size is enlarged and vasculature is slightly increased from prior study. Mildly prominent interstitial markings. No infiltrate. IMPRESSION: 1. Cardiac enlargement with mild pulmonary vascular congestion and interstitial edema, appearing changed from prior study. 2. Left-sided pacemaker. There is a metallic density over the inferior right heart margins of unknown etiology or significance. Dictated by: Dictated on workstation # [id number] Dict: 06/09/16 1550 Trans: 06/09/16 1713 [facility] [id number] Interpreted by: MALLIKA GONZALEZ DO Electronically signed by:MALLIKA GONZALEZ DO 06/09/16 1715 Physical Exam-(CHC) Physical Exam Vital Signs VS - Last 72 Hours, by Label 06/09/16 06/09/16 06/09/16 06/09/16 14:46 14:46 17:11 17:12 Temp 101.2 99.3 Pulse 67 62 Resp 18 18 B/P 133/64 Pulse Ox 94 96 O2 Delivery Nasal Cannula Nasal Cannula O2 Flow Rate 2 2.00 06/09/16 06/09/16 06/09/16 06/09/16 18:00 18:00 19:00 19:00 Temp 98.9 98.3 Pulse 60 64 61 Resp 16 18 B/P 113/67 131/60 Pulse Ox 97 97 96 O2 Delivery Room Air Room Air 06/09/16 06/09/16 06/09/16 06/10/16 20:00 20:45 21:30 00:00 Temp 98.3 Pulse 69 Resp 18 B/P 131/74 Pulse Ox 96 96 96 O2 Delivery Nasal Cannula O2 Flow Rate 2.00 2.00 06/10/16 06/10/16 06/10/16 06/10/16 00:30 00:57 04:00 06:55 Temp 98.6 Pulse 59 62 Resp 18 B/P 130/59 Pulse Ox 96 96 96 O2 Delivery Nasal Cannula O2 Flow Rate 2.00 2.00 2.00 06/10/16 06/10/16 06/10/16 06/10/16 07:00 08:55 09:38 10:19 Temp 97.1 Pulse 59 60 Resp 18 B/P 128/77 Pulse Ox 96 96 96 O2 Delivery Nasal Cannula O2 Flow Rate 2.00 2.00 2.00 06/10/16 06/10/16 06/10/16 06/10/16 12:27 13:00 13:00 14:22 Temp 96.7 97.7 Pulse 65 63 87 Resp 20 22 B/P 142/76 159/74 Pulse Ox 96 91 93 O2 Delivery Nasal Cannula Nasal Cannula O2 Flow Rate 2.00 2.00 2.00 06/10/16 06/10/16 06/10/16 06/10/16 19:04 19:40 20:00 21:00 Temp 97.4 Pulse 67 78 Resp 20 B/P 134/78 Pulse Ox 94 96 96 O2 Delivery Nasal Cannula O2 Flow Rate 2.00 2.00 2.00 06/11/16 06/11/16 06/11/16 06/11/16 00:00 00:58 04:00 07:02 Temp 98.6 98.1 Pulse 74 60 82 Resp 20 16 B/P 138/64 142/64 Pulse Ox 94 92 97 O2 Delivery Nasal Cannula Nasal Cannula O2 Flow Rate 2.00 2.00 2.00 Capillary Refill : Less Than 3 Seconds General Appearance: no apparent distress Eyes: Bilateral Eye Normal Inspection HEENT: pharynx normal Neck: non-tender full range of motion Respiratory: rhonchi Cardiovascular: regular rate, rhythm Gastrointestinal: soft Rectal: deferred Back: normal inspection Extremities: swelling (slight ankles) Neurologic/Psychiatric: alert (on floor) oriented x 3 Skin: warm/dry Assessment/Plan Assessment/Plan Admission Dx 1. Chest pain nonspecific and does not appear to be cardiac 2. Dehydration 3. Renal insufficiency 4. Bronchitis Plan 1. Chest pain nonspecific and does not appear to be cardiac at this point -She will continue to have 2 sets of cardiac enzymes. 2. Dehydration -IV fluid rehydration 3. Renal insufficiency -IV fluids and monitoring of chemistries as well as BUN/creatinine 4. Bronchitis -Initially chest x-ray reveals no infiltrates. -She is initiated on IV Levaquin -blood cultures also obtained. Diagnosis/Problems: Clinical Quality Measures DVT/VTE Risk/Contraindication: Risk Factor Score Per Nursin RFS Level Per Nursing on Admit: 3=High NAGI SERVIN MD Jun 09, 2016 19:31
[2016-06-09] MEDS ORDERED: 1/2 NS IV SOLUTION 1,000 ML IV ONE (19:33)
[2016-06-09] MEDS ORDERED: RT-ALBUTEROL/IPRATROPIUM 3 ML (DUONEB) VIAL INH PRN (21:00)
[2016-06-09] MEDS: inSUlin ASPART (NovoLOG) 1 UNIT/0.01 ML (CHARGE PER UNIT) SC SCH (21:38)
[2016-06-09] MEDS: 1/2 NS IV SOLUTION 1,000 ML IV SCH ×2 (21:38→22:15)
[2016-06-09] MEDS ORDERED: ACETAMINOPHEN 500 MG TAB (TYLENOL) PO PRN (22:15)
[2016-06-10] VITALS: BP 131/74
[2016-06-10 04:00] VITALS: BP 130/59
[2016-06-10 04:23] LABS: BASOPHILS % (AUTO) 0 % (0-10); EOSINOPHILS # (AUTO) 0.3 10^3/uL (0.0-0.3); EOSINOPHILS % (AUTO) 3 % (0-10); LYMPHOCYTES % (AUTO) 12 % (12-44); MEAN CORPUSCULAR HEMOGLOBIN 31 PG (25-34); MEAN CORPUSCULAR HGB CONC 33 G/DL (32-36); MEAN CORPUSCULAR VOLUME 96 FL (80-99); MEAN PLATELET VOLUME 10.8 FL (7.4-10.4); MONOCYTES # (AUTO) 0.6 X 10^3 (0.0-1.0); MONOCYTES % (AUTO) 8 % (0-12); NEUTROPHILS # (AUTO) 6.4 X 10^3 (1.8-7.8); NEUTROPHILS % (AUTO) 77 % (42-75); PLATELET COUNT 172 10^3/uL (130-400); WHITE BLOOD COUNT 8.3 10^3/uL (4.3-11.0)
[2016-06-10 04:44] LABS: ALBUMIN 2.9 G/DL (3.2-4.5); BILIRUBIN,TOTAL 0.4 MG/DL (0.1-1.0); CALCIUM 8.2 MG/DL (8.5-10.1); CREATININE SERUM 1.51 MG/DL (0.60-1.30); POTASSIUM 4.4 MMOL/L (3.6-5.0); TOTAL PROTEIN 5.8 G/DL (6.4-8.2)
[2016-06-10] MEDS: inSUlin ASPART (NovoLOG) 1 UNIT/0.01 ML (CHARGE PER UNIT) SC SCH ×5 (05:42→20:52)
[2016-06-10] MEDS: 1/2 NS IV SOLUTION 1,000 ML IV SCH ×2 (05:43→09:38)
[2016-06-10] MEDS: RT-ALBUTEROL/IPRATROPIUM 3 ML (DUONEB) VIAL INH SCH ×4 (06:55→19:40)
[2016-06-10 08:55] VITALS: BP 128/77
[2016-06-10] MEDS ORDERED: FLUO40CA PO (10:03)
[2016-06-10] MEDS ORDERED: HYDR200T46 PO (10:03)
[2016-06-10] MEDS ORDERED: AMLO2.5T PO (10:03)
[2016-06-10] MEDS ORDERED: FERR-74 PO (10:56)
[2016-06-10] MEDS ORDERED: BENZ100C23 PO (10:56)
[2016-06-10] MEDS ORDERED: CEFD300C3 PO (10:56)
[2016-06-10] MEDS ORDERED: ASPI-999 PO (10:56)
--- NOTE | 2016-06-10 12:02 | Consultation-Cardiology ---
HPI-Cardiology Cardiology Consultation Date of Consultation 06/10/16 Date of Admission Indication: shortness of breath, chest pain HPI 80-year-old lady with history of dual-chamber pacemaker, hypertension hyperlipidemia, systemic lupus erythematous. Patient was having increasing weakness and fatigue with loss of energy and increasing shortness of breath. She has been having chronic chest pain for which she had a stress test done about 3-4 months ago and it was reported to her that it was normal. She denied any palpitation, syncope or near syncopal episodes. No claudications. Home Medications & Allergies Allergies: Coded Allergies: No Known Drug Allergies (Unverified , 01/05/14) Home Medication List Reviewed: Yes RMY-Gtyxri-Vsyeqo Hx Patient Social History Alcohol Use: Denies Use Recreational Drug Use: No Smoking Status: Former Smoker Type Used: Cigarettes Recent Foreign Travel: No Recent Infectious Disease Expo: No Recent Hopitalizations: No Physical Abuse Screen: No Sexual Abuse: No Immunizations Up To Date Date of Pneumonia Vaccine: Feb 10, 2016 Date of Influenza Vaccine: Feb 10, 2016 Past Medical History past medical history as discussed below Family Medical History Family Medical Hx noncontributory to her current condition Family History: Patient reports no known family medical history. Constitutional: see HPI malaise weakness EENTM: no symptoms reported see HPI Respiratory: see HPINo cough, dyspnea on exertionNo hemoptysis, orthopneaNo phlegm, short of breathNo stridor, No wheezing, No other Cardiovascular: see HPI chest pain edemaNo Hx of Intervention, No palpitations , No syncope, No vascular heart diseas, No other Gastrointestinal: no symptoms reported see HPI Genitourinary: no symptoms reported see HPI Musculoskeletal: no symptoms reported see HPI Skin: no symptoms reported see HPI Psychiatric/Neurological: No Symptoms Reported See HPI Reviewed Test Results Reviewed Test Results Lab Laboratory Tests Test 06/09/16 15:03 06/09/16 15:17 06/09/16 16:22 06/09/16 20:49 Range/Units Activated Partial Thromboplast Time 29 24-35 SEC Alanine Aminotransferase (ALT/SGPT) 16 0-55 U/L Albumin 3.2 3.2-4.5 G/DL Alkaline Phosphatase 103 40-136 U/L Amylase Level 26 25-125 U/L Anion Gap 11 5-14 MMOL/L Aspartate Amino Transf (AST/SGOT) 12 5-34 U/L B-Type Natriuretic Peptide 999.8 H <100.0 PG/ML BUN/Creatinine Ratio 36 Basophils # (Auto) 0.0 0.0-0.1 10^3/uL Basophils (%) (Auto) 0 0-10 % Blood Urea Nitrogen 58 H 7-18 MG/DL Calcium Level 8.6 8.5-10.1 MG/DL Carbon Dioxide Level 19 L 21-32 MMOL/L Chloride Level 111 H 98-107 MMOL/L Creatine Kinase MB 1.2 <6.6 NG/ML Creatinine 1.60 H 0.60-1.30 MG/DL Eosinophils # (Auto) 0.1 0.0-0.3 10^3/uL Eosinophils (%) (Auto) 1 0-10 % Estimat Glomerular Filtration Rate 31 Glucose Level 207 H 70-105 MG/DL Hematocrit 32 L 35-52 % Hemoglobin 10.4 L 11.5-16.0 G/DL INR Comment 1.1 0.8-1.4 Lipase 11 8-78 U/L Lymphocytes # (Auto) 0.6 L 1.0-4.0 X 10^3 Lymphocytes (%) (Auto) 6 L 12-44 % Magnesium Level 1.6 L 1.8-2.4 MG/DL Mean Corpuscular Hemoglobin 31 25-34 PG Mean Corpuscular Hemoglobin Concent 33 32-36 G/DL Mean Corpuscular Volume 96 80-99 FL Mean Platelet Volume 10.5 H 7.4-10.4 FL Monocytes # (Auto) 0.6 0.0-1.0 X 10^3 Monocytes (%) (Auto) 6 0-12 % Neutrophils # (Auto) 9.0 H 1.8-7.8 X 10^3 Neutrophils (%) (Auto) 86 H 42-75 % Platelet Count 183 130-400 10^3/uL Potassium Level 4.0 3.6-5.0 MMOL/L Prothrombin Time 14.2 12.2-14.7 SEC Red Blood Count 3.32 L 4.35-5.85 10^6/uL Red Cell Distribution Width 14.2 10.0-14.5 % Sodium Level 141 135-145 MMOL/L Total Bilirubin 0.4 0.1-1.0 MG/DL Total Creatine Kinase 43 29-168 U/L Total Protein 6.5 6.4-8.2 G/DL Troponin I < 0.30 < 0.30 <0.30 NG/ML White Blood Count 10.4 4.3-11.0 10^3/uL Lactic Acid Level 1.34 0.50-2.00 MMOL/L Urine Amorphous Sediment LARGE TETO URATES H /LPF Urine Bacteria NEGATIVE /HPF Urine Bilirubin NEGATIVE NEGATIVE Urine Casts NONE /LPF Urine Clarity SLIGHTLY CLOUDY Urine Color YELLOW Urine Crystals NONE /LPF Urine Culture Indicated NO Urine Glucose (UA) NEGATIVE NEGATIVE Urine Ketones NEGATIVE NEGATIVE Urine Leukocyte Esterase NEGATIVE NEGATIVE Urine Mucus NEGATIVE /LPF Urine Nitrite NEGATIVE NEGATIVE Urine Protein 3+ H NEGATIVE Urine RBC NONE /HPF Urine RBC (Auto) NEGATIVE NEGATIVE Urine Specific [place] 1.015 L 1.016-1.022 Urine Squamous Epithelial Cells RARE /HPF Urine Urobilinogen NORMAL NORMAL MG/DL Urine WBC NONE /HPF Urine pH 5 5-9 Test 06/09/16 21:32 06/10/16 03:40 Range/Units Glucometer 239 H 70-110 MG/DL Alanine Aminotransferase (ALT/SGPT) 15 0-55 U/L Albumin 2.9 L 3.2-4.5 G/DL Alkaline Phosphatase 96 40-136 U/L Anion Gap 10 5-14 MMOL/L Aspartate Amino Transf (AST/SGOT) 12 5-34 U/L BUN/Creatinine Ratio 37 Basophils # (Auto) 0.0 0.0-0.1 10^3/uL Basophils (%) (Auto) 0 0-10 % Blood Urea Nitrogen 56 H 7-18 MG/DL Calcium Level 8.2 L 8.5-10.1 MG/DL Carbon Dioxide Level 18 L 21-32 MMOL/L Chloride Level 111 H 98-107 MMOL/L Creatinine 1.51 H 0.60-1.30 MG/DL Eosinophils # (Auto) 0.3 0.0-0.3 10^3/uL Eosinophils (%) (Auto) 3 0-10 % Estimat Glomerular Filtration Rate 33 Glucose Level 95 70-105 MG/DL Hematocrit 29 L 35-52 % Hemoglobin 9.4 L 11.5-16.0 G/DL Lymphocytes # (Auto) 1.0 1.0-4.0 X 10^3 Lymphocytes (%) (Auto) 12 12-44 % Mean Corpuscular Hemoglobin 31 25-34 PG Mean Corpuscular Hemoglobin Concent 33 32-36 G/DL Mean Corpuscular Volume 96 80-99 FL Mean Platelet Volume 10.8 H 7.4-10.4 FL Monocytes # (Auto) 0.6 0.0-1.0 X 10^3 Monocytes (%) (Auto) 8 0-12 % Neutrophils # (Auto) 6.4 1.8-7.8 X 10^3 Neutrophils (%) (Auto) 77 H 42-75 % Platelet Count 172 130-400 10^3/uL Potassium Level 4.4 3.6-5.0 MMOL/L Red Blood Count 3.00 L 4.35-5.85 10^6/uL Red Cell Distribution Width 14.0 10.0-14.5 % Sodium Level 139 135-145 MMOL/L Total Bilirubin 0.4 0.1-1.0 MG/DL Total Protein 5.8 L 6.4-8.2 G/DL White Blood Count 8.3 4.3-11.0 10^3/uL Radiology NAME: HUMBLE MULLINS MED REC#: [id number] PT STATUS: ADM Dipti : 1935 PHYSICIAN: WONG CASTRO DO ADMIT DATE: 06/09/16/ICU Signed Date of Exam: 06/09/16 CHEST 1 VIEW, AP/PA ONLY INDICATION: Chest pain. TECHNIQUE: Single view chest, 3:28 p.m. CORRELATION STUDY: 06/07/2016. FINDINGS: Left-sided pacemaker remains in place. Metallic density is superimposed over the right inferior heart margin, not present on prior study, of unknown etiology or significance. Heart size is enlarged and vasculature is slightly increased from prior study. Mildly prominent interstitial markings. No infiltrate. IMPRESSION: 1. Cardiac enlargement with mild pulmonary vascular congestion and interstitial edema, appearing changed from prior study. 2. Left-sided pacemaker. There is a metallic density over the inferior right heart margins of unknown etiology or significance. Dictated by: Dictated on workstation # [id number] Dict: 06/09/16 1550 Trans: 06/09/16 1713 [facility] [id number] Interpreted by: MALLIKA GONZALEZ DO Electronically signed by:MALLIKA GONZALEZ DO 06/09/16 1715 Physical Exam Vital Signs Vital Sign - Last 12Hours 06/09/16 14:46 Temp 101.2 Pulse 67 Resp 18 B/P 133/64 Pulse Ox 94 O2 Delivery Nasal Cannula O2 Flow Rate 2 Capillary Refill : Less Than 3 Seconds General Appearance: No Apparent Distress WD/WN Eyes: Bilateral Eye EOMI, Bilateral Eye Normal Inspection, Bilateral Eye PERRL HEENT: PERRL/EOMI TMs Normal Normal ENT Inspection Pharynx Normal Neck: Full Range of Motion Normal Inspection Non Tender Supple Carotid Bruit Respiratory: Chest Non Tender Lungs Clear Normal Breath Sounds No Accessory Muscle Use No Respiratory Distress Crackles Cardiovascular: Regular Rate, Rhythm No Edema No Gallop No JVD Normal Peripheral Pulses Systolic Murmur Gastrointestinal: Normal Bowel Sounds No Organomegaly No Pulsatile Mass Non Tender Soft Back: Normal Inspection No CVA Tenderness No Vertebral Tenderness Extremity: Normal Capillary Refill Normal Inspection Normal Range of Motion Non Tender No Calf Tenderness Pedal Edema Neurologic/Psychiatric: Alert Oriented x3 No Motor/Sensory Deficits Normal Mood/Affect Skin: Normal Color Warm/Dry Lymphatic: No Adenopathy A/P-Cardiology Admission Diagnosis chest pain nonspecific etiology Cardiac pacemaker Hypertension Hyperlipidemia Assessment/Plan Chest pain nonspecific etiology, atypical in presentation, patient is reporting that she had a stress test done 3-4 months ago in [facility], I will try to obtain copy of her workup results. Elevated BNP suggestive of congestive heart failure, on admission she had increased vascular congestion on her chest x-ray, currently feeling better. questionable heart failure, she has mild pedal edema at this point. S3 is present with systolic murmur on physical examination, planning to evaluate echocardiogram. Cardiac pacemaker, dual-chamber, I will try to obtain copy of the record to evaluate last interrogation. Appeared to be functioning normally on EKG and telemetry Acute on chronic renal insufficiency, slightly better, followed and managed by primary care physician she has seen and evaluated by a online media director Systemic lupus erythematous, maintained on plaque: Male. Followed by a senior business architect. Early dementia Hypertension, restart home medication monitor blood pressure. Hyperlipidemia, maintained on pravastatin as an outpatient, monitor lipids Diabetes mellitus, followed and managed by primary care physician Generalized weakness and loss of energy. Reporting improvement, recommend physical therapy evaluation Clinical Quality Measures DVT/VTE Risk/Contraindication: Risk Factor Score Per Nursin RFS Level Per Nursing on Admit: 3=High BISI COLEMAN MD Jun 10, 2016 12:02
[2016-06-10 12:27] VITALS: BP 142/76
[2016-06-10] MEDS ORDERED: PATIENT MAY USE OWN MEDS, ALL MC SCH (12:30)
[2016-06-10 13:00] VITALS: BP 159/74
--- NOTE | 2016-06-10 13:46 | Progress Note (SOAP) ---
Subjective Subjective/Events-last exam Febrile yesterday afternoon. She is feeling a little better today, but still weak. She does note she has had history of renal insufficiency but denies any diagnosis in the past of heart failure. She is alert and oriented to year, self and location, but cannot provide much history about her symptoms or past medical conditions. Date seen by provider: Jun 10, 2016 Time seen by provider: 09:40 Objective Exam Last Set of Vital Signs Vital Signs Date Time Temp Pulse Resp B/P Pulse Ox O2 Delivery O2 Flow Rate FiO2 06/10/16 12:27 96.7 65 20 142/76 96 Nasal Cannula 2.00 Capillary Refill : Less Than 3 Seconds General: Alert, No Acute Distress Lungs: Other (decreased air movement) Heart: Regular Rate, No Murmurs, Other (distant heart sounds) Abdomen: Normal Bowel Sounds, Soft Extremities: No Edema Neuro: Other (oriented to self, location and year but not date) Results/Procedures Lab Laboratory Tests 06/09/16 15:03: Activated Partial Thromboplast Time 29, Alanine Aminotransferase (ALT/SGPT) 16, Albumin 3.2, Alkaline Phosphatase 103, Amylase Level 26, Anion Gap 11, Aspartate Amino Transf (AST/SGOT) 12, B-Type Natriuretic Peptide 999.8H, BUN/ Creatinine Ratio 36, Basophils # (Auto) 0.0, Basophils (%) (Auto) 0, Blood Urea Nitrogen 58H, Calcium Level 8.6, Carbon Dioxide Level 19L, Chloride Level 111H, Creatine Kinase MB 1.2, Creatinine 1.60H, Eosinophils # (Auto) 0.1, Eosinophils (%) (Auto) 1, Estimat Glomerular Filtration Rate 31, Glucose Level 207H, Hematocrit 32L, Hemoglobin 10.4L, INR Comment 1.1, Lipase 11, Lymphocytes # ( Auto) 0.6L, Lymphocytes (%) (Auto) 6L, Magnesium Level 1.6L, Mean Corpuscular Hemoglobin 31, Mean Corpuscular Hemoglobin Concent 33, Mean Corpuscular Volume 96, Mean Platelet Volume 10.5H, Monocytes # (Auto) 0.6, Monocytes (%) (Auto) 6, Neutrophils # (Auto) 9.0H, Neutrophils (%) (Auto) 86H, Platelet Count 183, Potassium Level 4.0, Prothrombin Time 14.2, Red Blood Count 3.32L, Red Cell Distribution Width 14.2, Sodium Level 141, Total Bilirubin 0.4, Total Creatine Kinase 43, Total Protein 6.5, Troponin I < 0.30, White Blood Count 10.4 06/09/16 15:17: Lactic Acid Level 1.34 06/09/16 16:22: Urine Amorphous Sediment LARGE TETO URATESH, Urine Bacteria NEGATIVE, Urine Bilirubin NEGATIVE, Urine Casts NONE, Urine Clarity SLIGHTLY CLOUDY, Urine Color YELLOW, Urine Crystals NONE, Urine Culture Indicated NO, Urine Glucose (UA ) NEGATIVE, Urine Ketones NEGATIVE, Urine Leukocyte Esterase NEGATIVE, Urine Mucus NEGATIVE, Urine Nitrite NEGATIVE, Urine Protein 3+H, Urine RBC NONE, Urine RBC (Auto) NEGATIVE, Urine Specific [place] 1.015L, Urine Squamous Epithelial Cells RARE, Urine Urobilinogen NORMAL, Urine WBC NONE, Urine pH 5 06/09/16 20:49: Troponin I < 0.30 06/09/16 21:32: Glucometer 239H 06/10/16 03:40: Alanine Aminotransferase (ALT/SGPT) 15, Albumin 2.9L, Alkaline Phosphatase 96, Anion Gap 10, Aspartate Amino Transf (AST/SGOT) 12, BUN/Creatinine Ratio 37, Basophils # (Auto) 0.0, Basophils (%) (Auto) 0, Blood Urea Nitrogen 56H, Calcium Level 8.2L, Carbon Dioxide Level 18L, Chloride Level 111H, Creatinine 1.51H, Eosinophils # (Auto) 0.3, Eosinophils (%) (Auto) 3, Estimat Glomerular Filtration Rate 33, Glucose Level 95, Hematocrit 29L, Hemoglobin 9.4L, Lymphocytes # (Auto) 1.0, Lymphocytes (%) (Auto) 12, Mean Corpuscular Hemoglobin 31, Mean Corpuscular Hemoglobin Concent 33, Mean Corpuscular Volume 96, Mean Platelet Volume 10.8H, Monocytes # (Auto) 0.6, Monocytes (%) (Auto) 8, Neutrophils # (Auto) 6.4, Neutrophils (%) (Auto) 77H, Platelet Count 172, Potassium Level 4.4, Red Blood Count 3.00L, Red Cell Distribution Width 14.0, Sodium Level 139, Total Bilirubin 0.4, Total Protein 5.8L, White Blood Count 8.3 06/10/16 12:21: Glucometer 157H Microbiology 3/12/17 Influenza Types A,B Antigen (GALLO) - Final, Complete Radiology NAME: HUMBLE MULLINS [facility] REC#: [id number] PT STATUS: ADM Dipti : 1935 PHYSICIAN: WONG CASTRO DO ADMIT DATE: 06/09/16/ICU Signed Date of Exam: 06/09/16 CHEST 1 VIEW, AP/PA ONLY INDICATION: Chest pain. TECHNIQUE: Single view chest, 3:28 p.m. CORRELATION STUDY: 06/07/2016. FINDINGS: Left-sided pacemaker remains in place. Metallic density is superimposed over the right inferior heart margin, not present on prior study, of unknown etiology or significance. Heart size is enlarged and vasculature is slightly increased from prior study. Mildly prominent interstitial markings. No infiltrate. IMPRESSION: 1. Cardiac enlargement with mild pulmonary vascular congestion and interstitial edema, appearing changed from prior study. 2. Left-sided pacemaker. There is a metallic density over the inferior right heart margins of unknown etiology or significance. Dictated by: Dictated on workstation # [id number] Dict: 06/09/16 1550 Trans: 06/09/16 1713 [facility] [id number] Interpreted by: MALLIKA GONZALEZ DO Electronically signed by:MALLIKA GONZALEZ DO 06/09/16 1715 Assessment/Plan Assessment/Plan Admission Dx 1. Chest pain nonspecific and does not appear to be cardiac 2. Dehydration 3. Renal insufficiency 4. Bronchitis 5. Lupus 6. Anemia of unknown etiology 7. DMII 8. Hypothyroidism 9. HLD Plan 1. Chest pain nonspecific and does not appear to be cardiac- troponin negative x 2, CXR with possible pulmonary edema but no infiltrate -H/O pacemaker and follows with Dr. Mcclelland in [place], unclear diagnosis, denies history of CHF, although she does have prn lasix on her medication list -BNP 999 on admit, consider CHF, will consult Cardiology 2. Dehydration- may have intravascular volume depletion given her elevated creatinine -Received IVF overnight, with slight improvement in creatinine, will d/c for now given possibility of pulmonary edema and supplemental oxygen requirement and taking PO 3. Renal insufficiency- possibly volume depletion, although she does also note history of kidney problems of unclear diagnosis and history of lupus -Slight improvement after IVF overnight, monitor 4. Bronchitis- received levofloxacin x 1, however given no leukocytosis, no infiltrate on imaging, no clear evidence of bacterial infection, will hold antibiotics for now and monitor closely 5. Lupus- on plaquenil at home, consider as possible contributor to some of her other problems- anemia, possible heart dysfunction -Continue plaquenil for now pending further evaluation 6. Anemia of unknown etiology- reports history of anemia, but she does not know the cause, is on iron at home -Continue iron, check anemia analyzer 7. DMII- continue home insulin 8. Hypothyroidism- continue home synthroid -Obtain last TSH from clinic 9. HLD- continue home statin DVT ppx- SCDs, enoxaparin Diagnosis/Problems: Clinical Quality Measures DVT/VTE Risk/Contraindication: Risk Factor Score Per Nursin RFS Level Per Nursing on Admit: 3=High WILLIE ROMO MD Jun 10, 2016 1:46 pm
--- NOTE | 2016-06-10 15:00 | Physical Therapy Evaluation ---
PT Evaluation-General Medical Diagnosis Admission Date Jun 09, 2016 at 16:45 Medical Diagnosis: bronchitis/chest pain Onset Date: Jun 09, 2016 Therapy Diagnosis Therapy Diagnosis: generalized weakness/debility Height/Weight Height (Feet): 5 Height (Inches): 7.00 Weight (Pounds): 238 Weight (Ounces): 9.0 Precautions Precautions/Isolations: Fall Prevention, Standard Precautions Referral Physician: Luis Reason for Referral: Evaluation/Treatment Medical History Pertinent Medical History: CAD, DM, Heart Failure, HTN, Hypothroidism, Renal Insufficiency, Smoking Additional Medical History lupus Current History increase SOA; chest pain; dehydration Reviewed History: Yes Social History Home: Single Level Current Living Status: Other Family Entry Into Home: Ramp Prior/Core FIM Prior Level of Function Functional [place] Measure 0=Not Assessed/NA 4=Minimal Assistance 1=Total Assistance 5=Supervision or Setup 2=Maximal Assistance 6=Modified [place] 3=Moderate Assistance 7=Complete [place] Bed Mobility: 4 Transfers (B,C,W/C) (FIM): 5 Gait: 2 ambulates short distances only with FWW at home PLOF PT Evaluation-Current Subjective Patient agrees to PT. Denies pain. Patient states her activity level at home is sitting in a chair and watching TV. She states she does not get out in the community. Pain Numeric Pain Scale: 0-No Pain Location: No Pain Reported Objective Patient Orientation: Normal For Age Problem Solving: Fair Attachments: Oxygen (3L), IV ROM/Strength ROM Lower Extremities bilateral LE WFL Strenght Lower Extremities right knee flexion/extension 3+/5; hip flexion 3+/5; ankle dorsi/plantarflexion 3+/5 left knee flexion/extension 3+/5; hip flexion 3+/5; ankle dorsi/plantarflexion 3 +/5 Integumentary/Posture Integumentary refer to nursing notes Bowel Incontinence: No Bladder Incontinence: No Posture WFL Neuromuscular (Tone, Coordination, Reflexes) diminished coordination with notes tremors Sensory Vision: Functional Hearing: Functional Sensation Right Lower Extremit: Impaired Sensation Left Lower Extremity: Impaired Transfers Functional [place] Measure 0=Not Assessed/NA 4=Minimal Assistance 1=Total Assistance 5=Supervision or Setup 2=Maximal Assistance 6=Modified [place] 3=Moderate Assistance 7=Complete [place] Transfers (B, C, W/C) (FIM): 2 Scootin Supine to/from Sit: 2 Sit to/from Stand: 3 bed t/f WC(FIM only if WC use): 4 slightly unsteady; limites self due to SOA Gait Mode of Locomotion: Walk Anticipated Mode of Locomotion: Both Gait (FIM): 1 Distance (FIM): 1=up to 49 ft Distance: 5' Gait Level of Assist: 4 Gait Persons Needed: 1 Gait Assistive Device: FWW Comments/Gait Description slightly unsteady Balance Sitting Static: Fair Sitting Dynamic: Fair Standing Static: Fair Standing Dynamic: Fair Assessment/Needs 80 y.o. female, will benefit from skilled PT to address functional strength and mobility to improve current LOF and to safely return to home or care facility at maximum LOF. Rehab Potential: Fair Post Rehab Potential-Barriers: inactivity PLOF PT Care Home Goals Pastrycook'S Assistant Goals PT Pastrycook'S Assistant Goals Time Frame: Jun 17, 2016 Transfers (B,C,W/C) (FIM): 5 Gait (FIM): 2 Gait distance (FIM): 6=598-46 ft Distance: 50' Gait Level of Assist: 5 Gait Assistive Device: FWW PT Plan Problem List Problem List: Activity Tolerance, Functional Strength, Bed Mobility Treatment/Plan Treatment Plan: Continue Plan of Care Treatment Plan: Bed Mobility, Education, Functional Activity Sanchez, Functional Strength, Gait, Safety, Therapeutic Exercise, Transfers Treatment Duration: Jun 17, 2016 # of days/week 5-6 Visits Per Week: 5-6 Pt/Family Agrees w/Plan: Yes Safety Risks/Education Patient Education: Transfer Techniques Teaching Recipient: Patient Teaching Methods: Demonstration, Discussion Response to Teaching: Verbalize Understanding, Return Demonstration, Reinforcement Needed Discharge Recommendations Therapy D/C Recommendations: Home w/ Family Support, Correction (TCU/NH) Time/GCodes Time In: 1415 Time Out: 1440 Total Billed Treatment Time: 25 Total Billed Treatment 1 visit EVHighC 25 min G Codes Necessary: Yes PT/OT Therapy GCodes Therapy Functional Limitation: Physical Therapy Test(s)/Tool used to determine: Level of Assistance Scale Functional Limitation-Current Charge Code: MOBCUR Modifier: CM Functional Limitation-Goal Charge Code: MOBGOAL Modifier: CARA WEBBER PT Jun 10, 2016 15:00
[2016-06-10] MEDS: ENOXAPARIN 40 MG/0.4 ML (LOVENOX) SYR SC SCH (15:06)
[2016-06-10] MEDS ORDERED: inSUlin ASPART (NovoLOG) 1 UNIT/0.01 ML (CHARGE PER UNIT) SC SCH (16:00)
[2016-06-10 20:00] VITALS: BP 134/78
[2016-06-10] MEDS: inSUlin DETERMIR 1 UNIT/0.01 ML (LEVEMIR) CHARGE PER UNIT SQ SCH (20:51)
[2016-06-10] MEDS: OMEPRAZOLE 20 MG (PriLOSEC) CAP PO SCH (20:53)
[2016-06-10] MEDS: HYDROXYCHLOROQUINE 200 MG (PLAQUENIL) TAB PO SCH (20:53)
[2016-06-10] MEDS: DONEPEZIL 5 MG (ARICEPT) TAB PO SCH (20:54)
[2016-06-10] MEDS ORDERED: inSUlin DETERMIR 1 UNIT/0.01 ML (LEVEMIR) CHARGE PER UNIT SQ SCH (21:00)
[2016-06-11] VITALS: BP 138/64
[2016-06-11 04:00] VITALS: BP 142/64
[2016-06-11 04:38] LABS: BASOPHILS # (AUTO) 0.1 10^3/uL (0.0-0.1); BASOPHILS % (AUTO) 1 % (0-10); EOSINOPHILS # (AUTO) 0.2 10^3/uL (0.0-0.3); EOSINOPHILS % (AUTO) 3 % (0-10); LYMPHOCYTES # (AUTO) 1.2 X 10^3 (1.0-4.0); LYMPHOCYTES % (AUTO) 14 % (12-44); MEAN CORPUSCULAR HEMOGLOBIN 31 PG (25-34); MEAN CORPUSCULAR HGB CONC 32 G/DL (32-36); MEAN CORPUSCULAR VOLUME 96 FL (80-99); MEAN PLATELET VOLUME 10.7 FL (7.4-10.4); MONOCYTES # (AUTO) 0.5 X 10^3 (0.0-1.0); MONOCYTES % (AUTO) 7 % (0-12); NEUTROPHILS # (AUTO) 6.1 X 10^3 (1.8-7.8); NEUTROPHILS % (AUTO) 75 % (42-75); PLATELET COUNT 205 10^3/uL (130-400); RED BLOOD COUNT 3.15 10^6/uL (4.35-5.85); RED CELL DISTRIBUTION WIDTH 13.9 % (10.0-14.5); RETICULOCYTE % 2.52 % (0.50-2.40); WHITE BLOOD COUNT 8.1 10^3/uL (4.3-11.0)
[2016-06-11 04:43] LABS: MEAN PLATELET VOLUME 10.7 FL (7.4-10.4); RED BLOOD COUNT 3.12 10^6/uL (4.35-5.85); RED CELL DISTRIBUTION WIDTH 13.9 % (10.0-14.5); WHITE BLOOD COUNT 8.1 10^3/uL (4.3-11.0)
[2016-06-11 05:07] LABS: ALBUMIN 2.9 G/DL (3.2-4.5); BILIRUBIN,TOTAL 0.3 MG/DL (0.1-1.0); CALCIUM 8.5 MG/DL (8.5-10.1); CREATININE SERUM 1.6 MG/DL (0.60-1.30); POTASSIUM 4.3 MMOL/L (3.6-5.0); TOTAL PROTEIN 5.5 G/DL (6.4-8.2)
[2016-06-11 05:14] LABS: THYROID STIMULATING HORMONE 1.66 UIU/ML (0.35-4.94)
[2016-06-11 05:20] LABS: BAND NEUTROPHILS 0 %; EOSINOPHILS % (MANUAL) 0 %; LYMPHOCYTES % (MANUAL) 9 %; NEUTROPHILS % (MANUAL) 86 %
[2016-06-11 05:21] LABS: BASOPHILS % (MANUAL) 0 %
[2016-06-11] MEDS: inSUlin ASPART (NovoLOG) 1 UNIT/0.01 ML (CHARGE PER UNIT) SC SCH ×7 (06:00→21:20)
[2016-06-11] MEDS: RT-ALBUTEROL/IPRATROPIUM 3 ML (DUONEB) VIAL INH SCH ×4 (07:02→19:12)
[2016-06-11 07:55] VITALS: BP 124/73
--- NOTE | 2016-06-11 08:28 | Cardiology Progress Note ---
Subjective Subjective/Events-last exam patient is laying down in bed, still having some shortness of breath, denied any chest pain, unfortunately we did not receive any records from [facility] yet. The patient expressed that her granddaughter will try to call and get us the records from them Review of Systems General: No Chills, No Night Sweats, No Fatigue, No Malaise, No Appetite, No Other HEENT: No Head Aches, No Visual Changes, No Eye Pain, No Ear Pain, No Dysphasia , No Sinus Congestion, No Post Nasal Drip, No Sore Throat, No Other Pulmonary: DyspneaNo Cough, No Pleuritic Chest Pain, No Other Cardiovascular: No: Chest Pain, Edema, Lt Headedness, Orthopnea, Other, Palpitations, Paroxysmal Noc. Dyspnea Objective-Cardiology Exam Last Set of Vital Signs Vital Signs 06/11/16 07:55 Temp 98.0 Pulse 62 Resp 18 B/P 124/73 Pulse Ox 93 O2 Delivery Nasal Cannula O2 Flow Rate 2.00 Capillary Refill : Less Than 3 Seconds I&O Intake and Output 06/11/16 00:00 Intake Total 2450 ml Output Total 600 ml Balance 1850 ml Intake Oral 1450 ml IV Total 1000 ml Output Urine Total 600 ml # Voids 5 General: Alert, Cooperative, No Acute Distress HEENT: Atraumatic, PERRLA Neck: Supple, No JVD Lungs: Other (decreased air movement) Heart: Regular Rate, Normal S1, Normal S2, No Murmurs, Other (distant heart sounds) Abdomen: Normal Bowel Sounds, Soft Extremities: No Clubbing, No Cyanosis, No Edema Skin: No Rashes, No Breakdown Neuro: Normal Speech, Sensation Intact, Other (oriented to self, location and year but not date) Results Lab Laboratory Tests 06/11/16 03:40 06/11/16 03:46 A/P-Cardiology Admission Diagnosis chest pain nonspecific etiology Cardiac pacemaker Hypertension Hyperlipidemia Assessment/Plan Chest pain nonspecific etiology, atypical in presentation, patient is reporting that she had a stress test done 3-4 months ago in [facility], still did not receive the records from [facility], I'll try again to fax her request for the records. Elevated BNP suggestive of congestive heart failure, on admission she had increased vascular congestion on her chest x-ray, currently feeling better. questionable heart failure, she has mild pedal edema at this point. S3 is present with systolic murmur on physical examination, continue on diuretics, continue on antibiotics and monitor. Cardiac pacemaker, dual-chamber, I will try to obtain copy of the record to evaluate last interrogation. 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 Early dementia Hypertension, continue on current medication monitor blood pressure Hyperlipidemia, maintained on pravastatin as an outpatient, monitor lipids Diabetes mellitus, followed and managed by primary care physician Generalized weakness and loss of energy. Reporting improvement, recommend physical therapy evaluation Clinical Quality Measures DVT/VTE Risk/Contraindication: Risk Factor Score Per Nursin RFS Level Per Nursing on Admit: 3=High BISI COLEMAN MD Jun 11, 2016 08:28
--- NOTE | 2016-06-11 09:33 | ECHOCARDIOGRAPHY REPORT ---
PROCEDURE PHYSICIAN: BISI COLEMAN DATE OF PROCEDURE: 06/10/2016 TWO DIMENSIONAL ECHOCARDIOGRAM REPORT PRIMARY PHYSICIAN: OTHER PHYSICIAN: REFERRING PHYSICIAN: [facility][1] ORDERING PHYSICIAN: INDICATION FOR THE PROCEDURE: Chest pain. MEASUREMENTS DERIVED VALUES LV DIAMETER (LAX) NORMALS NORMALS Diastolic 5.5 (3.6-5.2) Eject. Fract. 40% (60%+/-6%) Systolic (2.3-3.9) Diastolic Vol. % Shortening (0.22-0.42) Systolic Vol. Aortic Root IVS THICKNESS Diastolic 1 (0.6-1.1) LVPW THICKNESS Diastolic 1.1 (0.6-1.1) LA DIAMETER Systolic 3.9 (2.1-3.7) FINDINGS: 1. Technical quality is good. 2. The left ventricle is prominent. Moderate to severe hypokinesia involving the mid to apical anterior wall, anterolateral wall. Systolic function is reduced. Estimated ejection fraction 40%. 3. The left atrium is in the upper normal limit in size. No clot or thrombus were seen within the left atrium. 4. The right atrium and right ventricle are normal in size. No clot or thrombus were seen within the right side. 5. Mitral valve is normal in morphology with moderate mitral regurgitation noted by color Doppler flow. No mitral valve prolapse. No mitral valve stenosis. 6. Aortic valve is trileaflet with normal opening and closing pattern. No significant aortic stenosis or regurgitation was seen. 7. Tricuspid valve is normal in morphology with mild tricuspid regurgitation noted by color Doppler flow. Doppler across tricuspid pulmonary valve estimated the pulmonary artery pressure of 38+ right atrial pressure. 8. Pulmonic valve is functioning normally. 9. No pericardial effusion. IN CONCLUSION: 1. Normal left ventricular size with moderate hypokinesia involving the mid to apical anterior wall and anterolateral wall. Systolic function is reduced. Estimated ejection fraction 40%. 2. Moderate mitral regurgitation. Mild tricuspid regurgitation. 3. Estimated pulmonary artery pressure of 45 mmHg. Job ID: [id number] Dictated Date: 06/10/2016 16:42:30 Conventions Assistant Date: 06/11/2016 09:27:53 / ramon
[2016-06-11] MEDS: HYDROXYCHLOROQUINE 200 MG (PLAQUENIL) TAB PO SCH ×2 (09:40→20:57)
[2016-06-11] MEDS: LORATADINE (CLARITIN) 10 MG TAB PO SCH (09:41)
[2016-06-11] MEDS: OMEPRAZOLE 20 MG (PriLOSEC) CAP PO SCH ×2 (09:41→20:58)
[2016-06-11] MEDS: FERROUS SULF 325 MG (IRON) TAB PO SCH (09:41)
[2016-06-11] MEDS: ASPIRIN 81 MG CHEW (CHILDREN'S ASA) PO SCH (09:43)
[2016-06-11] MEDS: Pravastatin Sodium 40 MG TAB PO SCH (09:43)
[2016-06-11] MEDS: FLUOXETINE HCL 40 MG PO SCH (09:44)
[2016-06-11] MEDS: LEVOTHYROXINE 125 MCG (LEVOTHROID) TABLET PO SCH (09:49)
[2016-06-11 12:00] VITALS: BP 124/66
--- NOTE | 2016-06-11 14:08 | Physical Therapy Daily Note ---
PT Daily Note-Current Subjective Upon initial entry, patient blood sugar was tested at 60. RN issued OJ and PB and crackers. (1400). Patient request PT return in 15-20 minutes. Upon PT returning to room, patient initially declined PT, however, the granddaughter the patient lives with convinced her to ambulate the distance she would at home. Per granddaughter, patient ambulate ~50'-75' with FWW and is in the w/c for distances. Family assist with ADL's due to patient inability to perform posterior and lower body activities per family report. Pain Numeric Pain Scale: 0-No Pain Location: No Pain Reported Mental Status Patient Orientation: Person, Time, Situation Transfers Functional [place] Measure 0=Not Assessed/NA 4=Minimal Assistance 1=Total Assistance 5=Supervision or Setup 2=Maximal Assistance 6=Modified [place] 3=Moderate Assistance 7=Complete IndependenceIRFPAI Quality Coding Scale 6 Independent with activity with or without an assistive device 5 Patient requires set up or clean up by helper. Patient completes activity by themselves 4 Supervision or touching assist (CGA). [place] provide cues , steadying assist 3 The helper provides less than half the effort to complete the activity 2 The helper provides more than half the effort to complete the activity 1 Dependent. The helper does all the effort to complete an activity 7 Patient refused to complete or attempt activity 9 The patient did not perform the activity before the current illness or injury 88 Not attempted due to Medical conditions or safety concerns Transfers (B, C, W/C) (FIM): 4 Scootin Rollin Supine to/from Sit: 4 Sit to/from Stand: 4 Gait Training Gait (FIM): 2 Distance (FIM): 5=578-05 ft Distance: 60' x 1; 15' x 1 Gait Level of Assist: 4 Gait Persons Needed: 1 Gait Assistive Device: FWW CGA for safety; safe and functional mobility Assessment Patient required dependent assist to cleanse after toileting, which family performs for her at home PLOF. Patient declined exercises secondary to patient and family state she naps frequently at home prior to this admit. Patient is supine in bed with needs met and family present. PT Senior Living Goals Rod[place]uster Goals PT [place] Goals Time Frame: Jun 17, 2016 Transfers (B,C,W/C) (FIM): 5 Gait (FIM): 2 Gait distance (FIM): 3=812-05 ft Distance: 50' Gait Level of Assist: 5 Gait Assistive Device: FWW PT Plan Treatment/Plan Treatment Plan: Continue Plan of Care Treatment Plan: Bed Mobility, Education, Functional Activity Sanchez, Functional Strength, Gait, Safety, Therapeutic Exercise, Transfers Treatment Duration: Jun 17, 2016 Visits Per Week: 5-6 Discharge Recommendations Therapy D/C Recommendations: Physical Therapy Home Care, Senior Care (TCU/ NH) Barriers to Progress limited due to inactivity PLOF Time/GCodes Time In: 1410 Time Out: 1420 Total Billed Treatment Time: 10 Total Billed Treatment 1 visit FA 10 min PT/OT Therapy GCodes Therapy Functional Limitation: Physical Therapy Test(s)/Tool used to determine: Level of Assistance Scale Functional Limitation-Current Charge Code: LYNDSEY Modifier: CM Functional Limitation-Goal Charge Code: MARTHA Modifier: CARA WEBBER PT Jun 11, 2016 14:08
--- NOTE | 2016-06-11 15:01 | Progress Note (SOAP) ---
Subjective Subjective/Events-last exam Afebrile, no acute events. She is still feeling very weak. She required significant assistance to get out of bed. Date seen by provider: Jun 11, 2016 Time seen by provider: 10:30 Objective Exam Last Set of Vital Signs Vital Signs Date Time Temp Pulse Resp B/P Pulse Ox O2 Delivery O2 Flow Rate FiO2 06/11/16 14:01 95 06/11/16 12:00 98.9 66 18 124/66 Nasal Cannula 2.00 Capillary Refill : Less Than 3 Seconds I&O Intake and Output 06/11/16 00:00 Intake Total 2450 ml Output Total 600 ml Balance 1850 ml Intake Oral 1450 ml IV Total 1000 ml Output Urine Total 600 ml # Voids 5 General: Alert, No Acute Distress Lungs: Clear to Auscultation, Normal Air Movement Heart: Regular Rate, No Murmurs Abdomen: Normal Bowel Sounds, Soft Extremities: No Edema Neuro: Normal Speech Results/Procedures Lab Laboratory Tests 06/10/16 15:19: Glucometer 226H 06/10/16 20:49: Glucometer 168H 06/11/16 03:40: Alanine Aminotransferase (ALT/SGPT) 19, Albumin 2.9L, Alkaline Phosphatase 109, Anion Gap 11, Aspartate Amino Transf (AST/SGOT) 15, BUN/Creatinine Ratio 35, Blood Urea Nitrogen 56H, Calcium Level 8.5, Carbon Dioxide Level 17L, Chloride Level 112H, Creatinine 1.60H, Estimat Glomerular Filtration Rate 31, Glucose Level 122H, Hematocrit 30L, Hemoglobin 9.7L, Mean Corpuscular Hemoglobin 31, Mean Corpuscular Hemoglobin Concent 32, Mean Corpuscular Volume 97, Mean Platelet Volume 10.7H, Platelet Count 205, Potassium Level 4.3, Red Blood Count 3.12L, Red Cell Distribution Width 13.9, Sodium Level 140, Thyroid Stimulating Hormone (TSH) 1.66, Total Bilirubin 0.3, Total Protein 5.5L, White Blood Count 8.1 06/11/16 03:46: Hematocrit 30L, Hemoglobin 9.6L, Mean Corpuscular Hemoglobin 31, Mean Corpuscular Hemoglobin Concent 32, Mean Corpuscular Volume 96, Mean Platelet Volume 10.7H, Platelet Count 205, Red Blood Count 3.15L, Red Cell Distribution Width 13.9, White Blood Count 8.1, Absolute Reticulocyte Count 79, Band Neutrophils 0, Basophils # (Auto) 0.1, Basophils % (Manual) 0, Basophils (%) ( Auto) 1, Blood Morphology Comment NORMAL, Eosinophils # (Auto) 0.2, Eosinophils % (Manual) 0, Eosinophils (%) (Auto) 3, Lymphocytes # (Auto) 1.2, Lymphocytes % (Manual) 9, Lymphocytes (%) (Auto) 14, Monocytes # (Auto) 0.5, Monocytes % ( Manual) 5, Monocytes (%) (Auto) 7, Neutrophils # (Auto) 6.1, Neutrophils % ( Manual) 86, Neutrophils (%) (Auto) 75, Percent Reticulocyte Count 2.52H 06/11/16 11:33: Glucometer 193H 06/11/16 13:42: Glucometer 60*L 06/11/16 14:31: Glucometer 73 Microbiology 06/09/16 Blood Culture - Preliminary, Resulted No growth 06/09/16 Influenza Types A,B Antigen (GALLO) - Final, Complete Radiology NAME: HUMBLE MULLINS [facility] REC#: [id number] PT STATUS: ADM Dipti : 1935 PHYSICIAN: WONG CASTRO DO ADMIT DATE: 06/09/16/ICU Signed Date of Exam: 06/09/16 CHEST 1 VIEW, AP/PA ONLY INDICATION: Chest pain. TECHNIQUE: Single view chest, 3:28 p.m. CORRELATION STUDY: 06/07/2016. FINDINGS: Left-sided pacemaker remains in place. Metallic density is superimposed over the right inferior heart margin, not present on prior study, of unknown etiology or significance. Heart size is enlarged and vasculature is slightly increased from prior study. Mildly prominent interstitial markings. No infiltrate. IMPRESSION: 1. Cardiac enlargement with mild pulmonary vascular congestion and interstitial edema, appearing changed from prior study. 2. Left-sided pacemaker. There is a metallic density over the inferior right heart margins of unknown etiology or significance. Dictated by: Dictated on workstation # [id number] Dict: 06/09/16 1550 Trans: 06/09/[address] [facility] [id number] Interpreted by: MALLIKA GONZALEZ DO Electronically signed by:MALLIKA GONZALEZ DO 06/09/16 1715 Assessment/Plan Assessment/Plan Admission Dx 1. Chest pain nonspecific and does not appear to be cardiac 2. Dehydration 3. Renal insufficiency 4. Bronchitis 5. Lupus 6. Anemia of unknown etiology 7. DMII 8. Hypothyroidism 9. HLD Plan 1. Chest pain nonspecific and does not appear to be cardiac- troponin negative x 2, CXR with possible pulmonary edema but no infiltrate -H/O pacemaker and follows with Dr. Mcclelland in [place], unclear diagnosis, denies history of CHF, although she does have prn lasix on her medication list -BNP 999 on admit, consider CHF, will consult Cardiology -Echo pending 2. Dehydration- may have intravascular volume depletion given her elevated creatinine -Received IVF overnight, with slight improvement in creatinine, will d/c for now given possibility of pulmonary edema and supplemental oxygen requirement and taking PO 06/11 do not suspect dehydration particularly, although creatinine stable/ elevated today, will monitor 3. Renal insufficiency- possibly volume depletion, although she does also note history of kidney problems of unclear diagnosis and history of lupus -Slight improvement after IVF overnight, monitor 06/11- reviewed records from clinic and she does have diagnosis of stage III chronic kidney disease, sees Nephrology in [place] 4. Bronchitis- received levofloxacin x 1, however given no leukocytosis, no infiltrate on imaging, no clear evidence of bacterial infection, will hold antibiotics for now and monitor closely 5. Lupus- on plaquenil at home, consider as possible contributor to some of her other problems- anemia, possible heart dysfunction -Continue plaquenil for now pending further evaluation 6. Anemia of unknown etiology- reports history of anemia, but she does not know the cause, is on iron at home -Continue iron, check anemia analyzer 06/11 after record review note chronic anemia, related to CKD 7. DMII- continue home insulin 8. Hypothyroidism- continue home synthroid -Obtain last TSH from clinic (was done Feb 2016) 06/11 TSH normal 9. HLD- continue home statin DVT ppx- SCDs, enoxaparin Diagnosis/Problems: Clinical Quality Measures DVT/VTE Risk/Contraindication: Risk Factor Score Per Nursin RFS Level Per Nursing on Admit: 3=High WILLIE ROMO MD Jun 11, 2016 3:00 pm
[2016-06-11] MEDS: ENOXAPARIN 40 MG/0.4 ML (LOVENOX) SYR SC SCH (15:09)
[2016-06-11] MEDS: DONEPEZIL 5 MG (ARICEPT) TAB PO SCH (20:58)
[2016-06-11] MEDS: inSUlin DETERMIR 1 UNIT/0.01 ML (LEVEMIR) CHARGE PER UNIT SQ SCH (21:20)
[2016-06-12] VITALS: BP 137/78
[2016-06-12] MEDS: inSUlin ASPART (NovoLOG) 1 UNIT/0.01 ML (CHARGE PER UNIT) SC SCH ×7 (06:00→21:00)
[2016-06-12 06:48] LABS: CALCIUM 8.5 MG/DL (8.5-10.1); CREATININE SERUM 1.51 MG/DL (0.60-1.30); MAGNESIUM 1.7 MG/DL (1.8-2.4); POTASSIUM 4.5 MMOL/L (3.6-5.0)
[2016-06-12] MEDS: RT-ALBUTEROL/IPRATROPIUM 3 ML (DUONEB) VIAL INH SCH (06:49)
[2016-06-12 07:45] LABS: FOLIC ACID 11.1 NG/ML (1.5-24.0)
[2016-06-12 07:47] LABS: %SAT TOTAL IRON BINDING CAPIC 17 % (15-50); IPF LEVEL 4.6 % (0.0-7.2); TIBC 186 L UG/DL (280-380); UIBC 155 UG/DL (55-450)
[2016-06-12 08:00] VITALS: BP 100/70
[2016-06-12] MEDS: OMEPRAZOLE 20 MG (PriLOSEC) CAP PO SCH ×2 (08:43→21:21)
[2016-06-12] MEDS: LORATADINE (CLARITIN) 10 MG TAB PO SCH (08:43)
[2016-06-12] MEDS: FERROUS SULF 325 MG (IRON) TAB PO SCH (08:44)
[2016-06-12] MEDS: HYDROXYCHLOROQUINE 200 MG (PLAQUENIL) TAB PO SCH ×2 (08:49→21:21)
[2016-06-12] MEDS: LEVOTHYROXINE 125 MCG (LEVOTHROID) TABLET PO SCH (08:49)
[2016-06-12] MEDS: ASPIRIN 81 MG CHEW (CHILDREN'S ASA) PO SCH (08:50)
[2016-06-12] MEDS: FLUOXETINE HCL 40 MG PO SCH (08:51)
[2016-06-12] MEDS: Pravastatin Sodium 40 MG TAB PO SCH (08:52)
--- NOTE | 2016-06-12 10:19 | Cardiology Progress Note ---
Subjective Subjective/Events-last exam Patient is sitting up in chair, no new complaints. Denies any CP. Complains of some dyspnea on exertion. Objective-Cardiology Exam Last Set of Vital Signs Vital Signs 06/12/16 06/12/16 00:00 06:50 Temp 98.6 Pulse 67 Resp 22 B/P 137/78 Pulse Ox 93 O2 Delivery Nasal Cannula O2 Flow Rate 2.00 Capillary Refill : Less Than 3 Seconds I&O Intake and Output 06/12/16 00:00 Intake Total 1360 ml Output Total 301 ml Balance 1059 ml Intake Oral 1360 ml Output Urine Total 301 ml # Voids 6 # Bowel Movements 3 General: Alert, No Acute Distress HEENT: Atraumatic, PERRLA Neck: Supple, No JVD Lungs: Clear to Auscultation, Normal Air Movement Heart: Regular Rate, No Murmurs Abdomen: Normal Bowel Sounds, Soft Extremities: No Edema Skin: No Rashes, No Breakdown Neuro: Normal Speech Results Lab Laboratory Tests 06/12/16 05:36 A/P-Cardiology Admission Diagnosis chest pain nonspecific etiology Cardiac pacemaker Hypertension Hyperlipidemia Assessment/Plan Chest pain nonspecific etiology, atypical in presentation, patient is reporting that she had a stress test done 3-4 months ago in [facility], still did not receive the records from [facility], I'll try again to fax her request for the records. CHF, acute LV systolic dysfunction, EF 40%. Unknown etiology. Patient reports had stress test done recently, will review her records once we have them. Continue to diurese. Cardiac pacemaker, dual-chamber, I will try to obtain copy of the record to evaluate last interrogation. 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 Early dementia Hypertension, continue on current medication monitor blood pressure Hyperlipidemia, maintained on pravastatin as an outpatient, monitor lipids Diabetes mellitus, followed and managed by primary care physician Generalized weakness and loss of energy. Reporting improvement, recommend physical therapy evaluation Clinical Quality Measures DVT/VTE Risk/Contraindication: Risk Factor Score Per Nursin RFS Level Per Nursing on Admit: 3=High JOSSELIN ANAND Jun 12, 2016 10:19
[2016-06-12] MEDS ORDERED: FUROSEMIDE 20 MG (LASIX) TAB PO PRN (11:30)
--- NOTE | 2016-06-12 11:42 | Progress Note (SOAP) ---
Subjective Subjective/Events-last exam Afebrile, no acute events. Walking better with PT yesterday, needed one person assist. Objective Exam Last Set of Vital Signs Vital Signs Date Time Temp Pulse Resp B/P Pulse Ox O2 Delivery O2 Flow Rate FiO2 06/12/16 08:00 98.5 66 20 100/70 94 Nasal Cannula 2.00 Capillary Refill : Less Than 3 Seconds I&O Intake and Output 06/12/16 00:00 Intake Total 1360 ml Output Total 301 ml Balance 1059 ml Intake Oral 1360 ml Output Urine Total 301 ml # Voids 6 # Bowel Movements 3 General: Alert, No Acute Distress Lungs: Clear to Auscultation, Normal Air Movement Heart: Regular Rate, No Murmurs Neuro: Normal Speech Results/Procedures Lab Laboratory Tests 06/11/16 13:42: Glucometer 60*L 06/11/16 14:31: Glucometer 73 06/11/16 15:57: Glucometer 139H 06/11/16 21:05: Glucometer 253H 06/12/16 05:36: Anion Gap 10, B-Type Natriuretic Peptide 890.0H, BUN/Creatinine Ratio 36, Blood Urea Nitrogen 54H, Calcium Level 8.5, Carbon Dioxide Level 19L, Chloride Level 113H, Cholesterol Level 117, Creatinine 1.51H, Estimat Glomerular Filtration Rate 33, Glucose Level 99, HDL Cholesterol 38L, LDL Cholesterol Direct 65, Magnesium Level 1.7L, Potassium Level 4.5, Sodium Level 142, Triglycerides Level 42, VLDL Cholesterol 8 06/12/16 11:13: Glucometer 112H Microbiology 06/09/16 Blood Culture - Preliminary, Resulted No growth 06/09/16 Influenza Types A,B Antigen (GALLO) - Final, Complete Radiology NAME: HUMBLE MULLINS [facility] REC#: [id number] PT STATUS: ADM Dipti : 1935 PHYSICIAN: WONG CASTRO DO ADMIT DATE: 06/09/16/ICU Signed Date of Exam: 06/09/16 CHEST 1 VIEW, AP/PA ONLY INDICATION: Chest pain. TECHNIQUE: Single view chest, 3:28 p.m. CORRELATION STUDY: 06/07/2016. FINDINGS: Left-sided pacemaker remains in place. Metallic density is superimposed over the right inferior heart margin, not present on prior study, of unknown etiology or significance. Heart size is enlarged and vasculature is slightly increased from prior study. Mildly prominent interstitial markings. No infiltrate. IMPRESSION: 1. Cardiac enlargement with mild pulmonary vascular congestion and interstitial edema, appearing changed from prior study. 2. Left-sided pacemaker. There is a metallic density over the inferior right heart margins of unknown etiology or significance. Dictated by: Dictated on workstation # [id number] Dict: 06/09/16 1550 Trans: 06/09/16 1713 [facility] [id number] Interpreted by: MALLIKA GONZALEZ DO Electronically signed by:MALLIKA GONZALEZ DO 06/09/16 1716 Assessment/Plan Assessment/Plan Admission Dx 1. Chest pain nonspecific and does not appear to be cardiac 2. Dehydration 3. Renal insufficiency 4. Bronchitis 5. Lupus 6. Anemia of unknown etiology 7. DMII 8. Hypothyroidism 9. HLD Plan 1. Chest pain nonspecific and does not appear to be cardiac- troponin negative x 2, CXR with possible pulmonary edema but no infiltrate -H/O pacemaker and follows with Dr. Mcclelland in [place], unclear diagnosis, denies history of CHF, although she does have prn lasix on her medication list -BNP 999 on admit, consider CHF, will consult Cardiology -Echo pending 06/12- echo with EF 40%, acute systolic CHF of unknown etiology, awaiting records from outside [employer]. Resume home lasix today- was not actually taking prn per family report, but was taking every day. No longer requiring supplemental oxygen today. 2. Dehydration- may have intravascular volume depletion given her elevated creatinine -Received IVF overnight, with slight improvement in creatinine, will d/c for now given possibility of pulmonary edema and supplemental oxygen requirement and taking PO 06/11 do not suspect dehydration particularly, although creatinine stable/ elevated today, will monitor 3. Renal insufficiency- possibly volume depletion, although she does also note history of kidney problems of unclear diagnosis and history of lupus -Slight improvement after IVF overnight, monitor 06/11- reviewed records from clinic and she does have diagnosis of stage III chronic kidney disease, sees Nephrology in [place] 4. Bronchitis- received levofloxacin x 1, however given no leukocytosis, no infiltrate on imaging, no clear evidence of bacterial infection, will hold antibiotics for now and monitor closely 5. Lupus- on plaquenil at home, consider as possible contributor to some of her other problems- anemia, possible heart dysfunction -Continue plaquenil for now pending further evaluation 6. Anemia of unknown etiology- reports history of anemia, but she does not know the cause, is on iron at home -Continue iron, check anemia analyzer 06/11 after record review note chronic anemia, related to CKD 7. DMII- continue home insulin 8. Hypothyroidism- continue home synthroid -Obtain last TSH from clinic (was done Feb 2016) 06/11 TSH normal 9. HLD- continue home statin 10. Debility- improving mobility with PT, not IRF candidate, will work with PT again today and anticipate function will be adequate for home tomorrow DVT ppx- SCDs, enoxaparin Diagnosis/Problems: Clinical Quality Measures DVT/VTE Risk/Contraindication: Risk Factor Score Per Nursin RFS Level Per Nursing on Admit: 3=High WILLIE ROMO MD Jun 12, 2016 11:42 am
--- NOTE | 2016-06-12 12:01 | Cardiology Progress Note ---
Subjective Subjective/Events-last exam patient is sitting in a chair, feeling better, denied any chest pain or shortness of breath. Reporting improvement. Review of Systems General: No Chills, No Night Sweats, No Fatigue, No Malaise, No Appetite, No Other HEENT: No Head Aches, No Visual Changes, No Eye Pain, No Ear Pain, No Dysphasia , No Sinus Congestion, No Post Nasal Drip, No Sore Throat, No Other Pulmonary: DyspneaNo Cough, No Pleuritic Chest Pain, No Other Cardiovascular: No: Chest Pain, Edema, Lt Headedness, Orthopnea, Other, Palpitations, Paroxysmal Noc. Dyspnea Objective-Cardiology Exam Last Set of Vital Signs Vital Signs 06/12/16 08:00 Temp 98.5 Pulse 66 Resp 20 B/P 100/70 Pulse Ox 94 O2 Delivery Nasal Cannula O2 Flow Rate 2.00 Capillary Refill : Less Than 3 Seconds I&O Intake and Output 06/11/16 23:59 Intake Total 1360 ml Output Total 301 ml Balance 1059 ml Intake Oral 1360 ml Output Urine Total 301 ml # Voids 6 # Bowel Movements 3 General: Alert, Oriented X3, Cooperative, No Acute Distress HEENT: Atraumatic, PERRLA Neck: Supple, No JVD Lungs: Clear to Auscultation, Normal Air Movement Heart: Regular Rate, Normal S1, Normal S2, No Murmurs Abdomen: Normal Bowel Sounds, Soft Extremities: No Clubbing, No Cyanosis, No Edema Skin: No Rashes, No Breakdown Neuro: Normal Speech Results Lab Laboratory Tests 06/12/16 05:36 A/P-Cardiology Admission Diagnosis Chest pain nonspecific etiology Cardiac pacemaker Hypertension Hyperlipidemia Assessment/Plan Chest pain nonspecific etiology, atypical in presentation, patient is reporting that she had a stress test done 3-4 months ago in [facility], still did not receive the records from [facility], unlikely to be cardiac, okay for discharge from cardiac standpoint CHF, acute LV systolic dysfunction, EF 40%. Unknown etiology. Patient reports had stress test done recently, Did not receive any records, I will start low- dose beta blockers and LICHA inhibitor and evaluate her tolerance and response. Cardiac pacemaker, dual-chamber, I will try to obtain copy of the record to evaluate last interrogation. Appeared to be functioning normally on EKG and telemetry Acute on chronic renal insufficiency, followed and managed by primary care physician she has seen and evaluated by a cook relief, I am starting low-dose LICHA inhibitor and I will continue monitoring her renal function closely. Systemic lupus erythematous, maintained on Plaquenil. Followed by a vibrating screed operator. Early dementia Hypertension, borderline hypotensive, I will evaluate tolerance to LICHA inhibitor and beta blockers. Hyperlipidemia, maintained on pravastatin as an outpatient, monitor lipids Diabetes mellitus, followed and managed by primary care physician Generalized weakness and loss of energy. Reporting improvement, recommend physical therapy evaluation Clinical Quality Measures DVT/VTE Risk/Contraindication: Risk Factor Score Per Nursin RFS Level Per Nursing on Admit: 3=High BISI COLEMAN MD Jun 12, 2016 12:01
[2016-06-12] MEDS: FUROSEMIDE 20 MG (LASIX) TAB PO SCH (12:22)
[2016-06-12 12:35] VITALS: BP 111/56
[2016-06-12] MEDS: ENALAPRIL 2.5 MG (VASOTEC) TAB PO SCH (12:52)
[2016-06-12] MEDS: ENOXAPARIN 40 MG/0.4 ML (LOVENOX) SYR SC SCH (14:45)
--- NOTE | 2016-06-12 15:29 | Physical Therapy Daily Note ---
PT Daily Note-Current Subjective Veena's caregiver was present for therapy. She stays with Veena 6-8 hr/day. Veena just had a shower and was drinking juice prior to PT. Veena has a ramp into the house. Walks with 4WW. Frequent amirah due to "bed" left knee. Appearance Lars LE pitting edema feet. Bruises on right leg and left foot from previous fall are resolving. Mental Status Patient Orientation: Person, Place, Time, Situation Transfers Functional [place] Measure 0=Not Assessed/NA 4=Minimal Assistance 1=Total Assistance 5=Supervision or Setup 2=Maximal Assistance 6=Modified [place] 3=Moderate Assistance 7=Complete IndependenceIRFPAI Quality Coding Scale 6 Independent with activity with or without an assistive device 5 Patient requires set up or clean up by helper. Patient completes activity by themselves 4 Supervision or touching assist (CGA). [place] provide cues , steadying assist 3 The helper provides less than half the effort to complete the activity 2 The helper provides more than half the effort to complete the activity 1 Dependent. The helper does all the effort to complete an activity 7 Patient refused to complete or attempt activity 9 The patient did not perform the activity before the current illness or injury 88 Not attempted due to Medical conditions or safety concerns Transfers (B, C, W/C) (FIM): 4 Sit to/from Stand: 4 Able to stand from bedside chair after a couple of attempts. Gait Training Gait (FIM): 3 Distance (FIM): 3=150 ft Distance: 100 ft Gait Level of Assist: 4 Gait Persons Needed: 1 Assessment Current Status: Good Progress Veena's walking distance limited by SOB. O2 sats on RA : 95%. She is motivated to regain her strength and ambulation. Agrees to take several short walks to the door with her family. PT Assistant Product Manager Goals Assistant Product Manager Goals PT Jail Goals Time Frame: Jun 17, 2016 Transfers (B,C,W/C) (FIM): 5 Gait (FIM): 2 Gait distance (FIM): 9=150-70 ft Distance: 50' Gait Level of Assist: 5 Gait Assistive Device: FWW PT Plan Treatment/Plan Treatment Plan: Continue Plan of Care Treatment Plan: Bed Mobility, Education, Functional Activity Sanchez, Functional Strength, Gait, Safety, Therapeutic Exercise, Transfers Treatment Duration: Jun 17, 2016 Visits Per Week: 5-6 Discharge Recommendations Target Placement Home with caregiver. Time/GCodes Time In: 245 Time Out: 300 Total Billed Treatment Time: 15 Total Billed Treatment Visit, Gt G Codes Necessary: No PT/OT Therapy GCodes Therapy Functional Limitation: Physical Therapy Test(s)/Tool used to determine: Level of Assistance Scale Functional Limitation-Current Charge Code: MOBCUR Modifier: CM Functional Limitation-Goal Charge Code: MOBGOAL Modifier: MELLO CAMPOS PT Jun 12, 2016 15:29
[2016-06-12 16:00] VITALS: BP 131/61
[2016-06-12] MEDS: DONEPEZIL 5 MG (ARICEPT) TAB PO SCH (21:22)
[2016-06-12] MEDS: CARVEDILOL 3.125 MG (COREG) TABLET PO SCH (21:22)
[2016-06-12] MEDS: inSUlin DETERMIR 1 UNIT/0.01 ML (LEVEMIR) CHARGE PER UNIT SQ SCH (21:23)
[2016-06-13 00:30] VITALS: BP 96/61
[2016-06-13] MEDS: inSUlin ASPART (NovoLOG) 1 UNIT/0.01 ML (CHARGE PER UNIT) SC SCH ×4 (06:00→11:34)
[2016-06-13 06:31] LABS: MEAN PLATELET VOLUME 10.2 FL (7.4-10.4); RED BLOOD COUNT 3.05 10^6/uL (4.35-5.85); RED CELL DISTRIBUTION WIDTH 13.9 % (10.0-14.5); WHITE BLOOD COUNT 7.2 10^3/uL (4.3-11.0)
[2016-06-13 07:02] LABS: ALBUMIN 2.8 G/DL (3.2-4.5); BILIRUBIN,TOTAL 0.3 MG/DL (0.1-1.0); CALCIUM 8.3 MG/DL (8.5-10.1); CREATININE SERUM 1.5 MG/DL (0.60-1.30); POTASSIUM 4.5 MMOL/L (3.6-5.0); TOTAL PROTEIN 5.5 G/DL (6.4-8.2)
[2016-06-13 08:33] VITALS: BP 105/66
--- NOTE | 2016-06-13 09:22 | Cardiology Progress Note ---
Subjective Subjective/Events-last exam Patient in bed. Denies any CP or dyspnea. Review of Systems General: No Night Sweats, No Fatigue, No Malaise HEENT: No Visual Changes, No Dysphasia, No Sore Throat Pulmonary: No Dyspnea, No Cough Cardiovascular: No: Chest Pain, Edema, Palpitations, Paroxysmal Noc. Dyspnea Gastrointestinal: No: Abdominal Pain, Nausea, Vomiting Genitourinary: No Frequency Musculoskeletal: No: back pain, neck pain Neurological: No: Change in speech, Confusion, Numbness, Weakness Objective-Cardiology Exam Last Set of Vital Signs Vital Signs 06/13/16 08:33 Temp 97.6 Pulse 70 Resp 18 B/P 105/66 Pulse Ox 93 O2 Delivery Nasal Cannula O2 Flow Rate 1.50 Capillary Refill : Less Than 3 Seconds I&O Intake and Output 06/13/16 00:00 Intake Total 1980 ml Output Total 100 ml Balance 1880 ml Intake Oral 1980 ml Output Urine Total 100 ml # Voids 6 # Urine Diapers 3 # Bowel Movements 3 General: Alert, Oriented X3, Cooperative, No Acute Distress HEENT: Atraumatic, PERRLA Neck: Supple, No JVD Lungs: Clear to Auscultation, Normal Air Movement Heart: Regular Rate, Normal S1, Normal S2, No Murmurs Abdomen: Normal Bowel Sounds, Soft Extremities: No Clubbing, No Cyanosis, No Edema Skin: No Rashes, No Breakdown Neuro: Normal Speech Results Lab Laboratory Tests 06/13/16 06:05 06/13/16 06:15 A/P-Cardiology Admission Diagnosis Chest pain nonspecific etiology Cardiac pacemaker Hypertension Hyperlipidemia Assessment/Plan Chest pain nonspecific etiology, atypical in presentation, stress test done at [place] in Nov 2015 revealed no significant ischemia, EF 41%. okay for discharge from cardiac standpoint CHF, acute LV systolic dysfunction, EF 40%. nonischemic cardiomyopathy.Started on low-dose beta blockers and LICHA inhibitor, continue to evaluate her tolerance and response. Cardiac pacemaker, dual-chamber, I will try to obtain copy of the record to evaluate last interrogation. Appeared to be functioning normally on EKG and telemetry Acute on chronic renal insufficiency, followed and managed by primary care physician she has seen and evaluated by a log brander, I am starting low-dose LICHA inhibitor and I will continue monitoring her renal function closely. Systemic lupus erythematous, maintained on Plaquenil. Followed by a service establishment attendant. Early dementia Hypertension, borderline hypotensive, I will evaluate tolerance to LICHA inhibitor and beta blockers. Hyperlipidemia, maintained on pravastatin as an outpatient, monitor lipids Diabetes mellitus, followed and managed by primary care physician Generalized weakness and loss of energy. Reporting improvement, recommend physical therapy evaluation Clinical Quality Measures DVT/VTE Risk/Contraindication: Risk Factor Score Per Nursin RFS Level Per Nursing on Admit: 3=High JOSSELIN ANAND Jun 13, 2016 09:22
[2016-06-13] MEDS: FUROSEMIDE 20 MG (LASIX) TAB PO SCH (09:27)
[2016-06-13] MEDS: CARVEDILOL 3.125 MG (COREG) TABLET PO SCH (09:27)
[2016-06-13] MEDS: ENALAPRIL 2.5 MG (VASOTEC) TAB PO SCH (09:27)
[2016-06-13] MEDS: HYDROXYCHLOROQUINE 200 MG (PLAQUENIL) TAB PO SCH (09:27)
[2016-06-13] MEDS: OMEPRAZOLE 20 MG (PriLOSEC) CAP PO SCH (09:28)
[2016-06-13] MEDS: ASPIRIN 81 MG CHEW (CHILDREN'S ASA) PO SCH (09:29)
[2016-06-13] MEDS: LORATADINE (CLARITIN) 10 MG TAB PO SCH (09:29)
[2016-06-13] MEDS: FERROUS SULF 325 MG (IRON) TAB PO SCH (09:30)
[2016-06-13] MEDS: FLUOXETINE HCL 40 MG PO SCH (09:30)
[2016-06-13] MEDS: Pravastatin Sodium 40 MG TAB PO SCH (09:31)
[2016-06-13] MEDS: LEVOTHYROXINE 125 MCG (LEVOTHROID) TABLET PO SCH (09:32)
--- NOTE | 2016-06-13 10:45 | Physical Therapy Daily Note ---
PT Daily Note-Current Subjective Agreeable to PT. Hopes to go home today. Reports she has [facility] typically and would be happy to resume. Mental Status Patient Orientation: Person, Place, Time, Situation Transfers Functional [place] Measure 0=Not Assessed/NA 4=Minimal Assistance 1=Total Assistance 5=Supervision or Setup 2=Maximal Assistance 6=Modified [place] 3=Moderate Assistance 7=Complete IndependenceIRFPAI Quality Coding Scale 6 Independent with activity with or without an assistive device 5 Patient requires set up or clean up by helper. Patient completes activity by themselves 4 Supervision or touching assist (CGA). [place] provide cues , steadying assist 3 The helper provides less than half the effort to complete the activity 2 The helper provides more than half the effort to complete the activity 1 Dependent. The helper does all the effort to complete an activity 7 Patient refused to complete or attempt activity 9 The patient did not perform the activity before the current illness or injury 88 Not attempted due to Medical conditions or safety concerns Sit to stand with SBA using hands to push up from the chair. Reprots she was able to get out of bed this morning without assist. Gait Training Gait (FIM): 5 Distance (FIM): 3=150 ft Gait Assistive Device: FWW slow gait, forward flexion at hips and was SOA post treatment, but recovering well as she sat down. Assessment Current Status: Good Progress Pt reprots she feels she can manage at home. Pt did not need assist with mobilty just supervsion for safety. Pt has caregivers and family to assist all the time as needed. Recommend [facility] PT at [place]. PT Snf Goals Snf Goals PT Snf Goals Time Frame: Jun 17, 2016 Transfers (B,C,W/C) (FIM): 5 (met) Gait (FIM): 2 (met) Gait distance (FIM): 4=758-79 ft Distance: 50' Gait Level of Assist: 5 Gait Assistive Device: FWW PT Plan Problem List Problem List: Activity Tolerance, Functional Strength Treatment/Plan Treatment Plan: Continue Plan of Care (vs DC from hospital) Treatment Plan: Bed Mobility, Education, Functional Activity Sanchez, Functional Strength, Gait, Safety, Therapeutic Exercise, Transfers Treatment Duration: Jun 17, 2016 Visits Per Week: 5-6 Safety Risks/Education Patient Education: Transfer Techniques, Safety Issues Teaching Recipient: Patient Teaching Methods: Discussion Response to Teaching: Verbalize Understanding Time/GCodes Time In: 1025 Time Out: 1037 Total Billed Treatment Time: 12 Total Billed Treatment visit GT 12 PT/OT Therapy GCodes Therapy Functional Limitation: Physical Therapy Test(s)/Tool used to determine: Level of Assistance Scale Functional Limitation-Current Charge Code: MOBCUMar Modifier: CM Functional Limitation-Goal Charge Code: MOBGOAL Modifier: GALE MULLER PT Jun 13, 2016 10:45
[2016-06-13] MEDS ORDERED: ENAL2.5T PO (11:25)
[2016-06-13] MEDS ORDERED: CARV3.122 PO (11:25)
--- NOTE | 2016-06-13 11:28 | Discharge Instructions ---
Discharge [facility] Discharge Medications New, Converted or Re-Newed RX: Transmitted to Pharmacy New Medications: Carvedilol (Carvedilol) 3.125 Mg Tablet 3.125 MG PO BID #60 Ref 0 TAB Enalapril Maleate (Enalapril Maleate) 2.5 Mg Tablet 2.5 MG PO DAILY #30 Ref 0 TAB Continued Medications: Albuterol/Ipratropium (Combivent Respimat Inhal [place]) 4 Gm Aero 2 PUFF IH 4 TIMES A DAY #1 INH Allopurinol (Allopurinol) 100 Mg Tablet 200 MG PO DAILY TAKES 2 (100 MG) TABLETS Aspirin (Aspirin) 81 Mg Tab.chew 81 MG PO DAILY TAB Donepezil HCl (Donepezil HCl) 5 Mg Tablet 5 MG PO HS Ergocalciferol (Vitamin D2) (Vitamin D2) 50,000 Unit Capsule 46610 UNITS PO WEEK Ferrous Sulfate (Ferrous Sulfate) 325 Mg Tablet 325 MG PO DAILY TAB Fluoxetine HCl (Fluoxetine HCl) 40 Mg Capsule 40 MG PO DAILY Furosemide (Furosemide) 20 Mg Tablet 20 MG PO DAILY PRN FLUID RETENTION Hydrocodone/Acetaminophen (Hydrocodon -Acetaminophen 5-325) 1 Each Tablet 1 TAB PO Q6H PRN PAIN Hydroxychloroquine Sulfate (Hydroxychloroquine Sulfate) 200 Mg Tablet 200 MG PO BID Insulin Aspart (Novolog Flexpen) 300 Units/3 Ml Solution 10 UNITS SQ TIDAC Insulin Detemir (Levemir Flextouch) 100 Unit/1 Ml Insuln.pen 10 UNITS SQ HS Levothyroxine Sodium (Levothyroxine Sodium) 125 Mcg Tablet 125 MCG PO DAILY Loratadine (Loratadine) 10 Mg Tablet 10 MG PO DAILY TAB Omeprazole (Omeprazole) 20 Mg Capsule.dr 20 MG PO BID Pravastatin Sodium (Pravastatin Sodium) 40 Mg Tablet 40 MG PO DAILY Discontinued Medications: Amlodipine Besylate (Amlodipine Besylate) 2.5 Mg Tablet 2.5 MG PO DAILY Benzonatate (Benzonatate) 100 Mg Capsule 100 MG PO BID 06/08/16 #20 FOR A 10 DAY THERAPY CAP Cefdinir (Cefdinir) 300 Mg Capsule 300 MG PO BID FILLED 06/08/16 #20 FOR A 10 DAY THERAPY CAP Patient Instructions Goal/Follow Up Appt: Follow up with Nohemi Perez on 06/20 at 10 am. Follow up with your Boxing And Pressing Supervisor within the next couple of weeks about your new abnormal echocardiogram findings (Ejection fraction 40%, consistent with acute systolic congestive heart failure) Follow up with your Supervisor Stitching Department to make sure they are okay with continuing plaquenil with the heart failure diagnosis. Return to The Hospital For: Difficulty breathing, chest pain, decreased urination, increased swelling Activity & Diet Discharge Diet: Low Sodium Diet, ADA Diet, Cardiac Diet Activity as Tolerated: Yes Copy Copies To 1: BRII Miller BETHANY N MD Jun 13, 2016 11:28 am
--- NOTE | 2016-06-13 11:30 | Discharge Summary ---
Diagnosis/Chief Complaint Date of Admission June 09, 2016 Date of Discharge Jun 13, 2016 Admission Diagnosis Admission Diagnosis 1. Chest pain nonspecific and does not appear to be cardiac 2. Dehydration 3. Renal insufficiency 4. Bronchitis 5. Lupus 6. Anemia of unknown etiology 7. DMII 8. Hypothyroidism 9. HLD Discharge Diagnosis 1. Chest pain nonspecific and does not appear to be cardiac- troponin negative x 2, CXR with possible pulmonary edema but no infiltrate -H/O pacemaker and follows with Dr. Mcclelland in [place], unclear diagnosis, denies history of CHF, although she does have prn lasix on her medication list -BNP 999 on admit, consider CHF, will consult Cardiology -Echo pending 06/12- echo with EF 40%, acute systolic CHF of unknown etiology, awaiting records from outside Supervisor [employer]. Resume home lasix today- was not actually taking prn per family report, but was taking every day. No longer requiring supplemental oxygen today. 06/13- creatinine stable with resuming lasix, started on carvedilol and enalapril for systolic heart failure by Cardiology and continued on d/c. Recommended quick follow-up with her primary Supervisor [employer]. 2. Dehydration- may have intravascular volume depletion given her elevated creatinine -Received IVF overnight, with slight improvement in creatinine, will d/c for now given possibility of pulmonary edema and supplemental oxygen requirement and taking PO 06/11 do not suspect dehydration particularly, although creatinine stable/ elevated today, will monitor 3. Renal insufficiency- possibly volume depletion, although she does also note history of kidney problems of unclear diagnosis and history of lupus -Slight improvement after IVF overnight, monitor 06/11- reviewed records from clinic and she does have diagnosis of stage III chronic kidney disease, sees Nephrology in [place] 4. Bronchitis- received levofloxacin x 1, however given no leukocytosis, no infiltrate on imaging, no clear evidence of bacterial infection, stopped antibiotics and had no further issues 5. Lupus- on plaquenil at home, consider as possible contributor to some of her other problems- anemia, possible heart dysfunction -Continue plaquenil for now pending further evaluation, discussed with patient and family and recommended f/u with Rheumatology 6. Anemia of unknown etiology- reports history of anemia, but she does not know the cause, is on iron at home -Continue iron, check anemia analyzer 06/11 after record review note chronic anemia, related to CKD 7. DMII- continue home insulin 8. Hypothyroidism- continue home synthroid -Obtain last TSH from clinic (was done Feb 2016) 06/11 TSH normal 9. HLD- continue home statin 10. Debility- improving mobility with PT, not IRF candidate, worked with PT with improvement before d/c Chief Complaint/HPI Chief Complaint/HPI 80-year-old female brought to via [facility] emergency department via EMS for generalized weakness and chest pain. She is also noted to have a cough. To chest pain has been going on for several days and apparently worsened on the day of admission. Pain is described as occurring from the upper chest and on the right side as well. She also admits to shortness of breath as well as overall weakness. She has had also swelling in the lower extremities. She did receive 325 mg of aspirin by EMS. Regarding her cough she has had this for about 2 days along with a fever up to 100.2. Discharge Summary-Simple/Stand Consultations Discharge Physical Examination Allergies: Coded Allergies: No Known Drug Allergies (Unverified , 01/05/14) Vitals & I&Os Vital Sign - Last 12Hours Date Time Temp Pulse Resp B/P Pulse Ox O2 Delivery O2 Flow Rate FiO2 06/13/16 09:00 Room Air 06/13/16 08:33 97.6 70 18 105/66 93 1.50 Intake and Output 06/13/16 00:00 Intake Total 1580 ml Output Total 100 ml Balance 1480 ml General Appearance: Alert Respiratory: Clear to Auscultation, Normal Air Movement Cardiovascular: Regular Rate, No Murmurs Extremities: No Edema Neuro: Normal Speech Hospital Course See final discharge diagnosis. Labs Laboratory Tests Test 06/11/16 14:31 06/11/16 15:57 06/11/16 21:05 06/12/16 05:36 Range/Units Glucometer 73 139 H 253 H 70-110 MG/DL Anion Gap 10 5-14 MMOL/L B-Type Natriuretic Peptide 890.0 H <100.0 PG/ML BUN/Creatinine Ratio 36 Blood Urea Nitrogen 54 H 7-18 MG/DL Calcium Level 8.5 8.5-10.1 MG/DL Carbon Dioxide Level 19 L 21-32 MMOL/L Chloride Level 113 H 98-107 MMOL/L Cholesterol Level 117 < 200 MG/DL Creatinine 1.51 H 0.60-1.30 MG/DL Estimat Glomerular Filtration Rate 33 Glucose Level 99 70-105 MG/DL HDL Cholesterol 38 L 40-60 MG/DL LDL Cholesterol Direct 65 1-129 MG/DL Magnesium Level 1.7 L 1.8-2.4 MG/DL Potassium Level 4.5 3.6-5.0 MMOL/L Sodium Level 142 135-145 MMOL/L Triglycerides Level 42 <150 MG/DL VLDL Cholesterol 8 5-40 MG/DL Test 06/12/16 11:13 06/12/16 16:02 06/12/16 17:23 06/12/16 21:04 Range/Units Glucometer 112 H 69 L 121 H 122 H 70-110 MG/DL Test 06/13/16 06:02 06/13/16 06:05 06/13/16 06:15 06/13/16 10:54 Range/Units Glucometer 141 H 174 H 70-110 MG/DL Hematocrit 29 L 35-52 % Hemoglobin 9.5 L 11.5-16.0 G/DL Mean Corpuscular Hemoglobin 31 25-34 PG Mean Corpuscular Hemoglobin Concent 32 32-36 G/DL Mean Corpuscular Volume 96 80-99 FL Mean Platelet Volume 10.2 7.4-10.4 FL Platelet Count 218 130-400 10^3/uL Red Blood Count 3.05 L 4.35-5.85 10^6/uL Red Cell Distribution Width 13.9 10.0-14.5 % White Blood Count 7.2 4.3-11.0 10^3/uL Alanine Aminotransferase (ALT/SGPT) 16 0-55 U/L Albumin 2.8 L 3.2-4.5 G/DL Alkaline Phosphatase 90 40-136 U/L Anion Gap 9 5-14 MMOL/L Aspartate Amino Transf (AST/SGOT) 10 5-34 U/L BUN/Creatinine Ratio 36 Blood Urea Nitrogen 54 H 7-18 MG/DL Calcium Level 8.3 L 8.5-10.1 MG/DL Carbon Dioxide Level 18 L 21-32 MMOL/L Chloride Level 113 H 98-107 MMOL/L Creatinine 1.50 H 0.60-1.30 MG/DL Estimat Glomerular Filtration Rate 33 Glucose Level 145 H 70-105 MG/DL Potassium Level 4.5 3.6-5.0 MMOL/L Sodium Level 140 135-145 MMOL/L Total Bilirubin 0.3 0.1-1.0 MG/DL Total Protein 5.5 L 6.4-8.2 G/DL Radiology Reviewed NAME: HUMBLE MULLINS [facility] REC#: [id number] PT STATUS: ADM Dipti : 1935 PHYSICIAN: WONG CASTRO DO ADMIT DATE: 06/09/16/ICU Signed Date of Exam: 06/09/16 CHEST 1 VIEW, AP/PA ONLY INDICATION: Chest pain. TECHNIQUE: Single view chest, 3:28 p.m. CORRELATION STUDY: 06/07/2016. FINDINGS: Left-sided pacemaker remains in place. Metallic density is superimposed over the right inferior heart margin, not present on prior study, of unknown etiology or significance. Heart size is enlarged and vasculature is slightly increased from prior study. Mildly prominent interstitial markings. No infiltrate. IMPRESSION: 1. Cardiac enlargement with mild pulmonary vascular congestion and interstitial edema, appearing changed from prior study. 2. Left-sided pacemaker. There is a metallic density over the inferior right heart margins of unknown etiology or significance. Dictated by: Dictated on workstation # [id number] Dict: 06/09/16 1550 Trans: 06/09/16 1713 [facility] [id number] Interpreted by: MALLIKA GONZALEZ DO Electronically signed by:MALLIKA GONZALEZ DO 06/09/16 1715 Discharge Instructions to patient/family Please see electonic discharge instructions given to patient. Discharge Medications Reviewed and agree with Discharge Medication list on patient's Discharge Instruction sheet Clinical Quality Measures DVT/VTE Risk/Contraindication: Risk Factor Score Per Nursin RFS Level Per Nursing on Admit: 3=High Copy Copies To 1: BRII Miller BETHANY N MD Jun 13, 2016 11:30
[2016-06-13] MEDS: RT-ALBUTEROL/IPRATROPIUM 3 ML (DUONEB) VIAL INH SCH (11:31)
--- NOTE | 2016-06-13 16:03 | Cardiology Progress Note ---
Subjective Subjective/Events-last exam Patient was seen and evaluated, feeling better, was on the schedule for discharge this morning Review of Systems General: No Chills, No Night Sweats, No Fatigue, No Malaise, No Appetite, No Other HEENT: No Head Aches, No Visual Changes, No Eye Pain, No Ear Pain, No Dysphasia , No Sinus Congestion, No Post Nasal Drip, No Sore Throat, No Other Pulmonary: No Dyspnea, No Cough, No Pleuritic Chest Pain, No Other Cardiovascular: No: Chest Pain, Edema, Lt Headedness, Orthopnea, Other, Palpitations, Paroxysmal Noc. Dyspnea Objective-Cardiology Exam Last Set of Vital Signs Vital Signs 06/13/16 06/13/16 08:33 09:00 Temp 97.6 Pulse 70 Resp 18 B/P 105/66 Pulse Ox 93 O2 Delivery Room Air O2 Flow Rate 1.50 Capillary Refill : Less Than 3 SecondsLess Than 3 Seconds I&O Intake and Output 06/13/16 00:00 Intake Total 1980 ml Output Total 100 ml Balance 1880 ml Intake Oral 1980 ml Output Urine Total 100 ml # Voids 6 # Urine Diapers 3 # Bowel Movements 3 General: Alert, Oriented X3, Cooperative HEENT: Atraumatic, PERRLA Neck: Supple, No JVD Lungs: Clear to Auscultation, Normal Air Movement Heart: Regular Rate, Normal S1, Normal S2, No Murmurs Abdomen: Normal Bowel Sounds, Soft Extremities: No Clubbing, No Cyanosis, No Edema Skin: No Rashes, No Breakdown Neuro: Normal Speech Results Lab Laboratory Tests 06/13/16 06:05 06/13/16 06:15 A/P-Cardiology Admission Diagnosis Chest pain nonspecific etiology Cardiac pacemaker Hypertension Hyperlipidemia Assessment/Plan Chest pain nonspecific etiology, atypical in presentation, stress test done at [place] in Nov 2015 revealed no significant ischemia, EF 41%. okay for discharge from cardiac standpoint CHF, acute LV systolic dysfunction, EF 40%. nonischemic cardiomyopathy.Started on low-dose beta blockers and LICHA inhibitor, continue to evaluate her tolerance and response. Cardiac pacemaker, dual-chamber, I will try to obtain copy of the record to evaluate last interrogation. 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 Systemic lupus erythematous, maintained on Plaquenil. 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 Early dementia Hypertension, okay for discharge and follow as an outpatient Hyperlipidemia, maintained on pravastatin as an outpatient, monitor lipids Diabetes mellitus, followed and managed by primary care physician Generalized weakness and loss of energy. Reporting improvement, recommend physical therapy evaluation Clinical Quality Measures DVT/VTE Risk/Contraindication: Risk Factor Score Per Nursin RFS Level Per Nursing on Admit: 3=High BISI COLEMAN MD Jun 13, 2016 16:03
== END 2016-06-13 13:10 | disposition home health service (06) | DRG 291 ==
LOC: EDUNIT# 14:46 → ER 14:47 → ICU 16:45 → UNDOADMOB 16:45 → ICU 18:00 → 4TH 06-11 10:51 → ICU 06-11 10:51 → OBSVTOIN 06-11 15:13
PROVIDERS: ADMIT Family Medicine; ATTEND Family Medicine
DX: I13.0 Hypertensive heart and chronic kidney disease with heart failure and stage 1 through stage 4 chronic kidney disease, or unspecified chronic kidney disease (principal); I50.21 Acute systolic (congestive) heart failure; N18.3 Chronic kidney disease, stage 3 (moderate); R07.89 Other chest pain; E86.0 Dehydration; I42.9 Cardiomyopathy, unspecified; N28.9 Disorder of kidney and ureter, unspecified; M32.9 Systemic lupus erythematosus, unspecified; R53.81 Other malaise; J44.9 Chronic obstructive pulmonary disease, unspecified; E78.00 Pure hypercholesterolemia, unspecified; E11.9 Type 2 diabetes mellitus without complications; F03.90 Unspecified dementia, unspecified severity, without behavioral disturbance, psychotic disturbance, mood disturbance, and anxiety; D64.9 Anemia, unspecified; E03.9 Hypothyroidism, unspecified; J30.2 Other seasonal allergic rhinitis; I25.10 Atherosclerotic heart disease of native coronary artery without angina pectoris; I25.2 Old myocardial infarction; K21.9 Gastro-esophageal reflux disease without esophagitis; E66.9 Obesity, unspecified; Z95.0 Presence of cardiac pacemaker; Z87.891 Personal history of nicotine dependence; Z79.4 Long term (current) use of insulin; Z68.37 Body mass index [BMI] 37.0-37.9, adult
CPT/HCPCS: 36415; 71010; 80048; 80053; 80061; 81000; 82150; 82550; 82553; 82607; 82746; 82962; 83540; 83550; 83605; 83690; 83735; 83880; 84443; 84484; 85007; 85025; 85027; 85045; 85055; 85610; 85730; 87040; 87804; 93005; 93041; 93306; 94640; 94760; G0378

== ENCOUNTER → 2016-06-25 | Outpatient (CLI) | payer MEDICARE, OTHER ==
[~2016-06-25] MED LIST changes: +AMLO2.5T PO; +ASPI-999 PO; +BENZ100C23 PO; +CARV3.122 PO; +ENAL2.5T PO; +FERR-74 PO; +FLUO40CA PO; +HYDR200T46 PO
[2016-06-25 12:50] LABS: ALBUMIN 3.2 G/DL (3.2-4.5); BILIRUBIN,TOTAL 0.4 MG/DL (0.1-1.0); CALCIUM 8.4 MG/DL (8.5-10.1); CREATININE SERUM 1.66 MG/DL (0.60-1.30); POTASSIUM 4.5 MMOL/L (3.6-5.0); TOTAL PROTEIN 6.1 G/DL (6.4-8.2)
--- NOTE | 2016-06-25 14:32 | Diagnostic Imaging Report ---
Portable AP view of the chest. INDICATION: Shortness of breath. FINDINGS: The heart size is moderately enlarged. There is bibasilar infiltrates, presumably alveolar edema with background interstitial edema in the mid and upper lung zones. Small effusions are present. There is no pneumothorax. The mediastinum and ernesto appear unremarkable. There is a pacemaker with 2 leads seen. IMPRESSION: Findings likely secondary to CHF. Dictated by: Dictated on workstation # [id number]
== END ==
LOC: RAD 11:41
PROVIDERS: ATTEND Nurse Practitioner Community Health
DX: R60.0 Localized edema (principal)
CPT/HCPCS: 36415; 71020; 80053; 83880

== ENCOUNTER → 2016-06-28 | Outpatient (CLI) | payer MEDICARE, OTHER ==
[2016-06-28 09:18] LABS: MEAN PLATELET VOLUME 9.7 FL (7.4-10.4); RED BLOOD COUNT 3.33 10^6/uL (4.35-5.85); RED CELL DISTRIBUTION WIDTH 15.5 % (10.0-14.5); WHITE BLOOD COUNT 6.9 10^3/uL (4.3-11.0)
[2016-06-28 09:26] LABS: BILIRUBIN,URINE NEGATIVE (NEGATIVE); KETONES,URINE NEGATIVE (NEGATIVE); LEUKOCYTE ESTERASE ,URINE NEGATIVE (NEGATIVE); NITRITE,URINE NEGATIVE (NEGATIVE); PH,URINE 5 (5-9); PROTEIN,URINE 3+ (NEGATIVE); UROBILINOGEN,URINE NORMAL (NORMAL)
[2016-06-28 09:38] LABS: ALBUMIN 3.2 G/DL (3.2-4.5); CALCIUM 8.3 MG/DL (8.5-10.1); CREATININE SERUM 1.54 MG/DL (0.60-1.30); PHOSPHORUS 2.1 MG/DL (2.3-4.7); POTASSIUM 4.5 MMOL/L (3.6-5.0); URIC ACID 5.4 MG/DL (2.6-7.2)
[2016-06-28 09:41] LABS: HYALINE CASTS, URINE RARE /LPF; WBC,URINE RARE /HPF
[2016-06-28 09:45] LABS: PROTEIN/CREATININE RATIO 1.19
[2016-06-30 07:16] LABS: CALCIUM PARA THYROID HORMONE 8.4 mg/dL (8.5-10.5)
== END ==
LOC: LAB 08:52
PROVIDERS: ATTEND Nurse Practitioner
DX: E46 Unspecified protein-calorie malnutrition (principal); E11.29 Type 2 diabetes mellitus with other diabetic kidney complication; E55.9 Vitamin D deficiency, unspecified; I13.10 Hypertensive heart and chronic kidney disease without heart failure, with stage 1 through stage 4 chronic kidney disease, or unspecified chronic kidney disease; E11.22 Type 2 diabetes mellitus with diabetic chronic kidney disease; N18.4 Chronic kidney disease, stage 4 (severe); D64.9 Anemia, unspecified; R80.9 Proteinuria, unspecified; E87.2 Acidosis; M10.00 Idiopathic gout, unspecified site; N25.81 Secondary hyperparathyroidism of renal origin; E78.5 Hyperlipidemia, unspecified; N25.0 Renal osteodystrophy; R76.8 Other specified abnormal immunological findings in serum; Z91.19 Patient's noncompliance with other medical treatment and regimen
CPT/HCPCS: 36415; 80061; 80069; 81000; 82306; 82570; 83036; 83970; 84156; 84550; 85027